=== PATIENT | male | born 1995 | race Caucasian/White ===

== ENCOUNTER 2020-03-27 08:04 | Emergency (ER) | payer OTHER ==
[2020-03-27] MEDS ORDERED: Sodium Chloride 0.9% 10 ML Syringe FLUSH PRN (08:57)
[2020-03-27] MEDS ORDERED: HYDROmorphone 1 MG/ML Syringe IVPUSH ONE (08:57)
[2020-03-27] MEDS ORDERED: Ondansetron 4 MG/2 ML SDV IVPUSH ONE (08:57)
[2020-03-27] MEDS ORDERED: Sodium Chloride 0.9% 1,000 ML IV SCH ×2 (09:00→10:45)
--- NOTE | 2020-03-27 09:34 | EDM.PDOC ---
ED HPI GENERAL MEDICAL PROBLEM - General Chief Complaint: Abdominal Pain Stated Complaint: VOMITING Time Seen by Provider: 03/27/20 08:34 Source of Information: Reports: Patient, Family, RN Notes Reviewed - History of Present Illness INITIAL COMMENTS - FREE TEXT/NARRATIVE: [age] yr old male has been having abd pain off and on for about 2 months, last 2 wks has been bad, at times OK, worse again the last few days. Not able to eat or drink much yesterday or today. Eating and drinking does make the pain, nausea and vomiting worse. No prior surgeries. No fever or chills. No diarrhea, melena, or hematochezia. Epigastric Pain Score (Numeric/FACES): 10 - Related Data Allergies Allergy/AdvReac Type Severity Reaction Status Date / Time No Known Allergies Allergy Verified 03/27/20 08:41 Home Meds: Home Meds Ondansetron [Zofran ODT] 4 mg SL Q4H PRN 03/27/20 [History] Past Medical History Gastrointestinal History: Reports: Other (See Below) Other Gastrointestinal History: similar symptoms 5 yrs ago as current complaint. Social & Family History - Tobacco Use Smoking Status *Q: Former Smoker Used Tobacco, but Quit: Yes Month/Year Tobacco Last Used: Oct 2019 - Caffeine Use Caffeine Use: Reports: Soda - Recreational Drug Use Recreational Drug Use: Yes Recreational Drug Type: Reports: Marijuana/Hashish ED ROS GENERAL - Review of Systems Review Of Systems: See Below Constitutional: Denies: Fever, Chills HEENT: Reports: No Symptoms Respiratory: Denies: Shortness of Breath Cardiovascular: Denies: Chest Pain GI/Abdominal: Reports: Abdominal Pain, Nausea, Vomiting. Denies: Diarrhea, Hematochezia, Melena Musculoskeletal: Denies: Back Pain Skin: Denies: Rash Neurological: Reports: Dizziness ED EXAM, GI/ABD - Physical Exam Exam: See Below General Appearance: Alert, Moderate Distress Throat/Mouth: Normal Inspection Head: Atraumatic. No: Facial Swelling Neck: Supple, Full Range of Motion Respiratory/Chest: No Respiratory Distress, Lungs Clear, Normal Breath Sounds Cardiovascular: Regular Rate, Rhythm GI/Abdominal Exam: Soft, Tender (mild upper and mid abd tenderness, lower abd nontender). No: Guarding Back Exam: No: CVA Tenderness (L), CVA Tenderness (R) Extremities: Normal Inspection, Normal Range of Motion Neurological: Alert, Oriented, No Motor/Sensory Deficits Skin Exam: Warm, Dry, Normal Color, No Rash Course - Vital Signs Last Recorded V/S: Last Vital Signs Temp 97.2 F 03/27/20 10:10 Pulse 74 03/27/20 10:10 Resp 16 03/27/20 10:10 BP 152/102 H 03/27/20 10:10 Pulse Ox 98 03/27/20 10:10 - Orders/Labs/Meds Orders: Active Orders 24 hr Category Date Time Status Peripheral IV Care [RC] . DIRECTED Care 03/27/20 08:58 Active Sodium Chloride 0.9% [Normal Saline] 1,000 ml Med 03/27/20 09:00 Active IV ONETIME Sodium Chloride 0.9% [Normal Saline] 1,000 ml Med 03/27/20 10:45 Active IV ONETIME Sodium Chloride 0.9% [Saline Flush] Med 03/27/20 08:57 Active 10 ml FLUSH ASDIRECTED PRN Peripheral IV Insertion Adult [OM.PC] Stat Oth 03/27/20 08:57 Ordered Medication Orders Sodium Chloride (Normal Saline) 1,000 mls @ 999 mls/hr IV ONETIME [facility] Last Admin: 03/27/20 09:13 Dose: 999 mls/hr Documented by: PHILIPP Sodium Chloride (Normal Saline) 1,000 mls @ 999 mls/hr IV ONETIME [facility] Last Admin: 03/27/20 11:35 Dose: 999 mls/hr Documented by: PHILIPP Sodium Chloride (Saline Flush) 10 ml FLUSH ASDIRECTED PRN PRN Reason: Keep Vein Open Last Admin: 03/27/20 09:06 Dose: 10 ml Documented by: PHILIPP Labs: Laboratory Tests 03/27/20 03/27/20 03/27/20 Range/Units 09:05 09:05 09:05 WBC 14.10 H (4.23-9.07) K/mm3 RBC 4.85 (4.63-6.08) M/mm3 Hgb 15.4 (13.7-17.5) gm/dl Hct 45.2 (40.1-51.0) % MCV 93.2 H (79.0-92.2) fl MCH 31.8 (25.7-32.2) pg MCHC 34.1 (32.2-35.5) g/dl RDW Std Deviation 39.8 (35.1-43.9) fL Plt Count 253 (163-337) K/mm3 MPV 10.6 (9.4-12.3) fl Neut % (Auto) 83.7 H (34.0-67.9) % Lymph % (Auto) 9.4 L (21.8-53.1) % [place] % (Auto) 6.1 (5.3-12.2) % Eos % (Auto) 0 L (0.8-7.0) Baso % (Auto) 0.4 (0.1-1.2) % Neut # (Auto) 11.82 H (1.78-5.38) K/mm3 Lymph # (Auto) 1.32 (1.32-3.57) K/mm3 [place] # (Auto) 0.86 H (0.30-0.82) K/mm3 Eos # (Auto) 0.00 L (0.04-0.54) K/mm3 Baso # (Auto) 0.05 (0.01-0.08) K/mm3 Manual Slide Review Abnormal smear Sodium 141 (136-145) mEq/L Potassium 3.5 (3.5-5.1) mEq/L Chloride 102 (98-107) mEq/L Carbon Dioxide 23 (21-32) mEq/L Anion Gap 19.5 H (5-15) BUN 11 (7-18) mg/dL Creatinine 1.2 (0.7-1.3) mg/dL Est Cr Clr Drug Dosing 100.23 mL/min Estimated GFR (MDRD) > 60 (>60) mL/min BUN/Creatinine Ratio 9.2 L (14-18) Glucose 156 H (74-106) mg/dL Calcium 9.8 (8.5-10.1) mg/dL Total Bilirubin 1.9 H (0.2-1.0) mg/dL AST 18 (15-37) U/L ALT 40 (16-63) U/L Alkaline Phosphatase 63 (46-116) U/L C-Reactive Protein 0.7 (<1.0) mg/dL Total Protein 8.1 (6.4-8.2) g/dl Albumin 4.6 (3.4-5.0) g/dl Globulin 3.5 gm/dL Albumin/Globulin Ratio 1.3 (1-2) Lipase 103 (73-393) U/L Meds: Medications Generic Name Dose Route Start Last Admin Trade Name Freq PRN Reason Stop Dose Admin Sodium Chloride 1,000 mls @ 999 mls/hr 03/27/20 09:00 03/27/20 09:13 Normal Saline IV 999 mls/hr ONETIME [facility] Administration Sodium Chloride 1,000 mls @ 999 mls/hr 03/27/20 10:45 03/27/20 11:35 Normal Saline IV 999 mls/hr ONETIME [facility] Administration Sodium Chloride 10 ml 03/27/20 08:57 03/27/20 09:06 Saline Flush FLUSH 10 ml ASDIRECTED PRN Administration Keep Vein Open Discontinued Medications Generic Name Dose Route Start Last Admin Trade Name Joshuaq PRN Reason Stop Dose Admin Hydromorphone HCl 1 mg 03/27/20 08:57 03/27/20 09:09 Dilaudid IVPUSH 03/27/20 08:58 1 mg ONETIME ONE Administration Hydromorphone HCl 0.5 mg 03/27/20 10:40 03/27/20 11:32 Dilaudid IVPUSH 03/27/20 10:41 0.5 mg ONETIME ONE Administration Metoclopramide HCl 5 mg 03/27/20 10:40 03/27/20 11:30 Reglan IVPUSH 03/27/20 10:41 5 mg ONETIME ONE Administration Ondansetron HCl 4 mg 03/27/20 08:57 03/27/20 09:11 Zofran IVPUSH 03/27/20 08:58 4 mg ONETIME ONE Administration - Re-Assessments/Exams Free Text/Narrative Re-Assessment/Exam: 03/27/20 11:19 Pt admits he does use marijauna pretty regularly. He did have US of abd when hospitalized in [place] about 2 wks ago. Labs are OK, bili slightly elevated at 1.1. Have given IV meds and fluid, will give meds and more fluid. Discharge instr. as documented. Departure - Departure Time of Disposition: 11:32 Disposition: Home, Self-Care 01 Condition: Fair Clinical Impression: Cyclic vomiting syndrome Abdominal pain Qualifiers: Abdominal location: upper abdomen, unspecified Qualified Code(s): R10.10 - Upper abdominal pain, unspecified Vomiting Qualifiers: Vomiting type: unspecified Vomiting Intractability: non-intractable Nausea presence: with nausea Qualified Code(s): R11.2 - Nausea with vomiting, unspecified - Discharge Information Instructions: Abdominal Pain, Adult, [id number], Nausea and Vomiting, Adult, Vomiting, Adult, Cyclic Vomiting Syndrome, Adult Referrals: PCP,Not In Area [Primary Care Provider] - Forms: ED Department Discharge Additional Instructions: clear liquids until later today, than careful bland diet as tolerated. Avoid further marijuana. Continue zofran if needed for further nausea or vomiting. See one of the medical providers at [facility] early next week for recheck. If still having severe difficulty they can help get you referred to a GI specialist, they can help refer you to one of their providers that does endoscopy at their clinic. Return to ED as needed. Sepsis Event Note (ED) - Evaluation Sepsis Screening Result: No Definite Risk - Focused Exam Vital Signs: Vital Signs Temp Pulse Resp BP Pulse Ox 03/27/20 10:10 97.2 F 74 16 152/102 H 98 03/27/20 08:25 95.1 F L 90 18 134/97 H 98 - My Orders Last 24 Hours: My Active Orders 03/27/20 08:57 Sodium Chloride 0.9% [Saline Flush] 10 ml FLUSH ASDIRECTED PRN Peripheral IV Insertion Adult [OM.PC] Stat 03/27/20 08:58 Peripheral IV Care [RC] . DIRECTED 03/27/20 09:00 Sodium Chloride 0.9% [Normal Saline] 1,000 ml IV ONETIME 03/27/20 10:45 Sodium Chloride 0.9% [Normal Saline] 1,000 ml IV ONETIME - Assessment/Plan Last 24 Hours: My Active Orders 03/27/20 08:57 Sodium Chloride 0.9% [Saline Flush] 10 ml FLUSH ASDIRECTED PRN Peripheral IV Insertion Adult [OM.PC] Stat 03/27/20 08:58 Peripheral IV Care [RC] . DIRECTED 03/27/20 09:00 Sodium Chloride 0.9% [Normal Saline] 1,000 ml IV ONETIME 03/27/20 10:45 Sodium Chloride 0.9% [Normal Saline] 1,000 ml IV ONETIME
[2020-03-27] MEDS ORDERED: Metoclopramide 10 MG/2 ML SDV IVPUSH ONE (10:40)
[2020-03-27] MEDS ORDERED: HYDROmorphone 0.5 MG/0.5 ML Syringe IVPUSH ONE (10:40)
== END 2020-03-27 12:55 | disposition home or self-care (01) ==
LOC: JD.ED 08:04
DX: R10.10 Upper abdominal pain, unspecified (principal); R11.15 Cyclical vomiting syndrome unrelated to migraine
CPT/HCPCS: 36415; 80053; 83690; 85025; 86140; 96361; 96374; 96375; 96376; 99284; J1170; J2405; J2765; J7030; 99283

== ENCOUNTER 2020-03-27 20:33 | Inpatient (IN) | payer SELFPAY ==
[2020-03-27] MEDS ORDERED: Ondansetron 4 MG/2 ML SDV IVPUSH ONE (21:09)
[2020-03-27] MEDS ORDERED: Sodium Chloride 0.9% 1,000 ML IV STA (21:09)
[2020-03-27] MEDS ORDERED: Sodium Chloride 0.9% 10 ML Syringe FLUSH PRN (21:09)
[2020-03-27] MEDS ORDERED: HYDROmorphone 1 MG/ML Syringe IVPUSH ONE ×2 (21:11→23:43)
--- NOTE | 2020-03-27 22:01 | EDM.PDOC ---
ED HPI GENERAL MEDICAL PROBLEM - General Chief Complaint: Gastrointestinal Problem Stated Complaint: VOMITING Time Seen by Provider: 03/27/20 20:42 Source of Information: Reports: Patient History Limitations: Reports: No Limitations - History of Present Illness INITIAL COMMENTS - FREE TEXT/NARRATIVE: The patient presents with abdominal pain, nausea and vomiting. He was seen here earlier today for the same. He had labs done and he was given meds for nausea and pain. He was found to have hyperemesis due to cannabis use. He last used last night. He had this happen before back in [place] and he needed to be admitted on the 10 of March. He went home today and it came back and he feels he is worse and that he needs to be admitted. He has no fever, cough, chest pain, shortness of breath or diarrhea. He does have some chills. He still has his gallbladder and appendix. Onset: Gradual Duration: Day(s): Location: Reports: Abdomen Quality: Reports: Sharp Severity: Moderate Improves with: Reports: None Worsens with: Reports: None Associated Symptoms: Reports: Fever/Chills, Nausea/Vomiting. Denies: Chest Pain, Cough, Headaches, Shortness of Breath Abdomen Pain Score (Numeric/FACES): 10 - Related Data Allergies Allergy/AdvReac Type Severity Reaction Status Date / Time No Known Allergies Allergy Verified 03/27/20 20:58 Home Meds: Home Meds Ondansetron [Zofran ODT] 4 mg SL Q4H PRN 03/27/20 [History] Past Medical History Gastrointestinal History: Reports: Other (See Below) Other Gastrointestinal History: similar symptoms 5 yrs ago as current complaint. Social & Family History - Family History Family Medical History: Noncontributory - Tobacco Use Smoking Status *Q: Former Smoker Used Tobacco, but Quit: Yes Month/Year Tobacco Last Used: 2019 - Caffeine Use Caffeine Use: Reports: Soda - Recreational Drug Use Recreational Drug Use: Yes Drug Use in Last 12 Months: Yes Recreational Drug Type: Reports: Marijuana/Hashish Recreational Drug Use Frequency: Daily Recreational Drug Last Use: t-1 ED ROS GENERAL - Review of Systems Review Of Systems: See Below Constitutional: Reports: Chills. Denies: Fever HEENT: Reports: No Symptoms Respiratory: Reports: No Symptoms Cardiovascular: Reports: No Symptoms Endocrine: Reports: No Symptoms GI/Abdominal: Reports: Abdominal Pain, Nausea, Vomiting. Denies: Diarrhea : Reports: No Symptoms Musculoskeletal: Reports: No Symptoms ED EXAM, GI/ABD - Physical Exam Exam: See Below Exam Limited By: No Limitations General Appearance: Alert, No Apparent Distress Ears: Normal External Exam Nose: Normal Inspection Head: Atraumatic, Normocephalic Neck: Normal Inspection Respiratory/Chest: No Respiratory Distress, Lungs Clear, Normal Breath Sounds Cardiovascular: Regular Rate, Rhythm, No Edema, No Murmur GI/Abdominal Exam: Soft, No Organomegaly, No Mass, Tender (Mild generalized tenderness) Course - Vital Signs Last Recorded V/S: Last Vital Signs Temp 97 F 03/27/20 20:48 Pulse 110 H 03/27/20 20:48 Resp 20 03/27/20 20:48 BP 159/102 H 03/27/20 20:48 Pulse Ox 99 03/27/20 20:48 - Orders/Labs/Meds Orders: Active Orders 24 hr Category Date Time Status Gastrointestinal Tube Mgmt [RC] ASDIRECTED Care 03/27/20 23:30 Active Peripheral IV Care [RC] . DIRECTED Care 03/27/20 21:09 Active Abdomen Pelvis w Cont [CT] Stat Exams 03/27/20 21:09 Taken HYDROmorphone [Dilaudid] Med 03/27/20 23:43 Once 1 mg IVPUSH ONETIME ONE Sodium Chloride 0.9% [Saline Flush] Med 03/27/20 21:09 Active 10 ml FLUSH ASDIRECTED PRN ED Antiemetic Medication Reflex [OM.PC] Stat Oth 03/27/20 21:09 Ordered NG [Nasogastric Orogastric Tube Insertion] [OM.PC] Oth 03/27/20 23:30 Ordered Routine Peripheral IV Insertion Adult [OM.PC] Stat Oth 03/27/20 21:09 Ordered Medication Orders Sodium Chloride (Saline Flush) 10 ml FLUSH ASDIRECTED PRN PRN Reason: Keep Vein Open Last Admin: 03/27/20 21:42 Dose: 10 ml Documented by: [email or web address] Labs: Laboratory Tests 03/27/20 03/27/20 03/27/20 Range/Units 21:30 21:30 21:30 WBC 13.47 H (4.23-9.07) K/mm3 RBC 4.71 (4.63-6.08) M/mm3 Hgb 14.9 (13.7-17.5) gm/dl Hct 43.8 (40.1-51.0) % MCV 93.0 H (79.0-92.2) fl MCH 31.6 (25.7-32.2) pg MCHC 34.0 (32.2-35.5) g/dl RDW Std Deviation 40.4 (35.1-43.9) fL Plt Count 253 (163-337) K/mm3 MPV 10.9 (9.4-12.3) fl Neut % (Auto) 80.2 H (34.0-67.9) % Lymph % (Auto) 10.7 L (21.8-53.1) % [place] % (Auto) 8.4 (5.3-12.2) % Eos % (Auto) 0 L (0.8-7.0) Baso % (Auto) 0.4 (0.1-1.2) % Neut # (Auto) 10.81 H (1.78-5.38) K/mm3 Lymph # (Auto) 1.44 (1.32-3.57) K/mm3 [place] # (Auto) 1.13 H (0.30-0.82) K/mm3 Eos # (Auto) 0.00 L (0.04-0.54) K/mm3 Baso # (Auto) 0.05 (0.01-0.08) K/mm3 Manual Slide Review Normal smear Sodium 146 H (136-145) mEq/L Potassium 3.4 L (3.5-5.1) mEq/L Chloride 105 (98-107) mEq/L Carbon Dioxide 24 (21-32) mEq/L Anion Gap 20.4 H (5-15) BUN 8 (7-18) mg/dL Creatinine 1.1 (0.7-1.3) mg/dL Est Cr Clr Drug Dosing 109.34 mL/min Estimated GFR (MDRD) > 60 (>60) mL/min BUN/Creatinine Ratio 7.3 L (14-18) Glucose 134 H (74-106) mg/dL Calcium 9.2 (8.5-10.1) mg/dL Magnesium 1.8 (1.8-2.4) mg/dl Total Bilirubin 1.5 H (0.2-1.0) mg/dL Direct Bilirubin 0.30 H (0.0-0.2) mg/dl AST 18 (15-37) U/L ALT 36 (16-63) U/L Alkaline Phosphatase 58 (46-116) U/L Total Protein 7.9 (6.4-8.2) g/dl Albumin 4.3 (3.4-5.0) g/dl Globulin 3.6 gm/dL Albumin/Globulin Ratio 1.2 (1-2) Lipase 108 (73-393) U/L Urine Color (Yellow) Urine Appearance (Clear) Urine pH (5.0-8.0) Ur Specific [place] (1.005-1.030) Urine Protein (Negative) Urine Glucose (UA) (Negative) Urine Ketones (Negative) Urine Occult Blood (Negative) Urine Nitrite (Negative) Urine Bilirubin (Negative) Urine Urobilinogen (0.2-1.0) Ur Leukocyte Esterase (Negative) Urine RBC (0-5) /hpf Urine WBC (0-5) /hpf Ur Squamous Epith Cells (0-5) /hpf Urine Bacteria (FEW) /hpf Urine Mucus (FEW) /hpf Urine Opiates Screen (YEKOEG=390) Ur Buprenorphine Scrn (CUTOFF=10) Ur Oxycodone Screen (QTS8DQ=672) Urine Methadone Screen (QZK3XS=455) Ur Propoxyphene Screen (IXXSJX=693) Ur Barbiturates Screen (YEXRNU=311) Ur Tricyclics Screen (AOSAPH=302) Ur Phencyclidine Scrn (CUTOFF=25) Ur Amphetamine Screen (HZIUGW=128) U Methamphetamines Scrn (MHWGCT=487) U Benzodiazepines Scrn (WDPGXN=274) U Cocaine Metab Screen (CYFOVG=041) U Marijuana (THC) Screen (CUTOFF=50) 03/27/20 03/27/20 Range/Units 23:13 23:13 WBC (4.23-9.07) K/mm3 RBC (4.63-6.08) M/mm3 Hgb (13.7-17.5) gm/dl Hct (40.1-51.0) % MCV (79.0-92.2) fl MCH (25.7-32.2) pg MCHC (32.2-35.5) g/dl RDW Std Deviation (35.1-43.9) fL Plt Count (163-337) K/mm3 MPV (9.4-12.3) fl Neut % (Auto) (34.0-67.9) % Lymph % (Auto) (21.8-53.1) % [place] % (Auto) (5.3-12.2) % Eos % (Auto) (0.8-7.0) Baso % (Auto) (0.1-1.2) % Neut # (Auto) (1.78-5.38) K/mm3 Lymph # (Auto) (1.32-3.57) K/mm3 [place] # (Auto) (0.30-0.82) K/mm3 Eos # (Auto) (0.04-0.54) K/mm3 Baso # (Auto) (0.01-0.08) K/mm3 Manual Slide Review Sodium (136-145) mEq/L Potassium (3.5-5.1) mEq/L Chloride (98-107) mEq/L Carbon Dioxide (21-32) mEq/L Anion Gap (5-15) BUN (7-18) mg/dL Creatinine (0.7-1.3) mg/dL Est Cr Clr Drug Dosing mL/min Estimated GFR (MDRD) (>60) mL/min BUN/Creatinine Ratio (14-18) Glucose (74-106) mg/dL Calcium (8.5-10.1) mg/dL Magnesium (1.8-2.4) mg/dl Total Bilirubin (0.2-1.0) mg/dL Direct Bilirubin (0.0-0.2) mg/dl AST (15-37) U/L ALT (16-63) U/L Alkaline Phosphatase (46-116) U/L Total Protein (6.4-8.2) g/dl Albumin (3.4-5.0) g/dl Globulin gm/dL Albumin/Globulin Ratio (1-2) Lipase (73-393) U/L Urine Color Yellow (Yellow) Urine Appearance Clear (Clear) Urine pH 6.0 (5.0-8.0) Ur Specific [place] 1.025 (1.005-1.030) Urine Protein Negative (Negative) Urine Glucose (UA) Negative (Negative) Urine Ketones 4+ H (Negative) Urine Occult Blood Trace-lysed H (Negative) Urine Nitrite Negative (Negative) Urine Bilirubin Negative (Negative) Urine Urobilinogen 0.2 (0.2-1.0) Ur Leukocyte Esterase Negative (Negative) Urine RBC 0-5 (0-5) /hpf Urine WBC Not seen (0-5) /hpf Ur Squamous Epith Cells 0-5 (0-5) /hpf Urine Bacteria Not seen (FEW) /hpf Urine Mucus Not seen (FEW) /hpf Urine Opiates Screen Negative (WTKTEB=522) Ur Buprenorphine Scrn Negative (CUTOFF=10) Ur Oxycodone Screen Negative (HAJ4OL=509) Urine Methadone Screen Negative (DPR2DZ=324) Ur Propoxyphene Screen Negative (PWMSZX=900) Ur Barbiturates Screen Negative (HIRBEN=512) Ur Tricyclics Screen Negative (QBUPUN=195) Ur Phencyclidine Scrn Negative (CUTOFF=25) Ur Amphetamine Screen Negative (NKAPBK=127) U Methamphetamines Scrn Negative (HXJAGD=626) U Benzodiazepines Scrn Negative (GKQKYN=101) U Cocaine Metab Screen Negative (JJJISC=788) U Marijuana (THC) Screen Presumptive positive H (CUTOFF=50) Meds: Medications Generic Name Dose Route Start Last Admin Trade Name Freq PRN Reason Stop Dose Admin Sodium Chloride 10 ml 03/27/20 21:09 03/27/20 21:42 Saline Flush FLUSH 10 ml ASDIRECTED PRN Administration Keep Vein Open Discontinued Medications Generic Name Dose Route Start Last Admin Trade Name Freq PRN Reason Stop Dose Admin Diatrizoate Meglum/Diatrizoate Sod 90 ml 03/27/20 22:53 03/27/20 22:54 Gastrografin 37% PO 03/27/20 22:54 90 ml ONETIME ONE Administration Hydromorphone HCl 1 mg 03/27/20 21:11 03/27/20 21:31 Dilaudid IVPUSH 03/27/20 21:12 1 mg ONETIME ONE Administration Sodium Chloride 1,000 mls @ 1,000 mls/hr 03/27/20 21:09 03/27/20 21:31 Normal Saline IV 03/27/20 22:08 1,000 mls/hr .BOLUS STA Administration Iopamidol 100 ml 03/27/20 22:53 03/27/20 22:54 Isovue-300 (61%) IVPUSH 03/27/20 22:54 100 ml ONETIME ONE Administration Lidocaine HCl Confirm 03/27/20 23:36 Xylocaine 2% Jelly Administered 03/27/20 23:37 Dose 10 ml .ROUTE .STK-MED ONE Ondansetron HCl 4 mg 03/27/20 21:09 03/27/20 21:31 Zofran IVPUSH 03/27/20 21:10 4 mg ONETIME ONE Administration Pantoprazole Sodium 80 mg 03/27/20 23:30 03/27/20 23:42 Protonix Iv IVPUSH 03/27/20 23:31 80 mg BOLUS ONE Administration - Re-Assessments/Exams Free Text/Narrative Re-Assessment/Exam: 03/27/20 22:01 I ordered an IV NS 1L bolus, zofran 4mg IV, dilaudid 1mg IV, labs, UA and a CT of his abdomen and pelvis. 03/27/20 22:27 His WBC is elevated at 13.47 but improved from earlier. His Na is 146 and his potassium is low at 3.4. His anion gap is elevated at 20.4. His glucose is 134. His total bili is 1.5. His lipase is normal. I am waiting for the CT. 03/27/20 23:44 His UA shows no UTI. His UDS was positive for marijuana. His CT shows wall thickening involving the pyloric canal 1st/2nd portions of the duodenum. This could be due to incomplete distention, peristalsis/contraction. Changes secondary to gastritis/duodenitis are not excluded. Moderately dilated stomach, that may represent changes of ileus or partial outlet obstruction. I called Dr Renae our general surgeon automobile [employer] bonder and he wanted an NG in and a PP I and he will see him in the morning. He requested the hospitalist admit and he be on consult. He may do a EGD tomorrow. I called Dr Philip and he agreed to the admission. I ordered protonix 80mg IV and the NG. Departure - Departure Time of Disposition: 23:50 Disposition: Admitted As Inpatient 66 Condition: Fair Clinical Impression: Gastric outlet obstruction, Duodenitis Gastritis Qualifiers: Gastritis type: unspecified gastritis Chronicity: acute Gastritis bleeding: without bleeding Qualified Code(s): K29.00 - Acute gastritis without bleeding - Discharge Information Referrals: Amarilys Grider MD [Primary Care Provider] - Forms: ED Department Discharge Sepsis Event Note (ED) - Evaluation Sepsis Screening Result: No Definite Risk - Focused Exam Vital Signs: Vital Signs Temp Pulse Resp BP Pulse Ox 03/27/20 20:48 97 F 110 H 20 159/102 H 99 - My Orders Last 24 Hours: My Active Orders 03/27/20 21:09 Peripheral IV Care [RC] . DIRECTED Abdomen Pelvis w Cont [CT] Stat Sodium Chloride 0.9% [Saline Flush] 10 ml FLUSH ASDIRECTED PRN ED Antiemetic Medication Reflex [OM.PC] Stat Peripheral IV Insertion Adult [OM.PC] Stat 03/27/20 23:30 Gastrointestinal Tube Mgmt [RC] ASDIRECTED NG [Nasogastric Orogastric Tube Insertion] [OM.PC] Routine 03/27/20 23:43 HYDROmorphone [Dilaudid] 1 mg IVPUSH ONETIME ONE - Assessment/Plan Last 24 Hours: My Active Orders 03/27/20 21:09 Peripheral IV Care [RC] . DIRECTED Abdomen Pelvis w Cont [CT] Stat Sodium Chloride 0.9% [Saline Flush] 10 ml FLUSH ASDIRECTED PRN ED Antiemetic Medication Reflex [OM.PC] Stat Peripheral IV Insertion Adult [OM.PC] Stat 03/27/20 23:30 Gastrointestinal Tube Mgmt [RC] ASDIRECTED NG [Nasogastric Orogastric Tube Insertion] [OM.PC] Routine 03/27/20 23:43 HYDROmorphone [Dilaudid] 1 mg IVPUSH ONETIME ONE
[2020-03-27] MEDS ORDERED: Iopamidol 612 MG/ML 100 ML Bottle IVPUSH ONE (22:53)
[2020-03-27] MEDS ORDERED: Diatrizoate Meglumine/Diatrizoate Sodium 37% 120 ML Bottle PO ONE (22:53)
[2020-03-27] MEDS ORDERED: Pantoprazole 40 MG Vial IVPUSH ONE (23:30)
[2020-03-27] MEDS ORDERED: Lidocaine 2% Jelly 10 ML Urojet ONE (23:36)
--- NOTE | 2020-03-28 00:46 | PCM.HP.2 ---
H&P History of Present Illness - General Date of Service: 03/28/20 - History of Present Illness Initial Comments - Free Text/Narative: 25-year-old male with complaints of abdominal pain, nausea, and vomiting for last 2 to 2-1/2 months. Patient states that initially he was just nauseous in the mornings and after smoking marijuana he would improve. Symptoms progressed and on March 10, 2020 he was hospitalized for 3 nights in [facility] for colitis. Patient states he had a CT scan done but did not get an endoscopy performed. Patient was seen here February 25 with continued nausea and vomiting. Patient was believed to have hyperemesis due to cannabis use. Symptoms continued throughout the day and returned last night to the emergency department. He states his emesis has been growing darker and his abdominal pain has been constant and severe. He denies any hematemesis, hemoptysis, melena, or hematochezia. No family history of inflammatory bowel disease. Grandfather with colon cancer. Last night in the emergency department he had a CT scan of the abdomen and pelvis that was read by Sanjay galvez that showed: 1. Wall thickening involving the pyloric canal and first/second portions of the duodenum. This could be due to incomplete distention, peristalsis/contraction. Changes secondary to gastritis/duodenitis are not excluded. 2. Mildly dilated stomach, that may represent changes of ileus or partial outlet obstruction. Laboratory results on the night of March 27: WBC 13.47, hemoglobin 14.9, platelets 253. Chemistry: Sodium 146, potassium 3.4, chloride 105, bicarb 24, anion gap 20.4, BUN 8, creatinine 1.1, glucose 134, magnesium 1.8, calcium 9.2, total bilirubin 1.5, direct bilirubin 0.30 with normal AST 18 and normal ALT 36. Lipase 108. Albumin 4.3. Alkaline phosphatase 58. UA showed ketones 4+. Urine drug screen was presumptive positive for marijuana which he already admitted to. Patient was given Zofran, Protonix 80 mg IV push, 1 L normal saline bolus and an NG tube was placed. Dr. Renae in surgery was consulted and requests the hospitalist service to admit with possibility of EGD in the morning. He stopped smoking tobacco and drinking 4 months ago. He smokes marijuana daily. Abdomen Pain Score (Numeric/FACES): 10 - Related Data Allergies/Adverse Reactions: Allergies Allergy/AdvReac Type Severity Reaction Status Date / Time No Known Allergies Allergy Verified 03/28/20 01:26 Home Medications: Home Meds Ondansetron [Zofran ODT] 4 mg SL Q4H PRN 03/27/20 [History] Past Medical History Gastrointestinal History: Reports: Other (See Below) Other Gastrointestinal History: similar symptoms 5 yrs ago as current complaint. Social & Family History - Family History Family Medical History: Noncontributory - Tobacco Use Smoking Status *Q: Former Smoker Used Tobacco, but Quit: Yes Month/Year Tobacco Last Used: 2019 - Caffeine Use Caffeine Use: Reports: Soda - Recreational Drug Use Recreational Drug Use: Yes Drug Use in Last 12 Months: Yes Recreational Drug Type: Reports: Marijuana/Hashish Recreational Drug Use Frequency: Daily Recreational Drug Last Use: t-1 H&P Review of Systems - Review of Systems: Review Of Systems: Comprehensive ROS is negative, except as noted in HPI. Exam - Exam Exam: See Below - Vital Signs Vital Signs: Last Vital Signs Temp 97 F 03/27/20 20:48 Pulse 110 H 03/27/20 20:48 Resp 20 03/27/20 20:48 BP 159/102 H 03/27/20 20:48 Pulse Ox 99 03/27/20 20:48 Weight: 99.79 kg - Exam Quality Assessment: Other (NG tube) General: Alert, Oriented, 4 HEENT: Conjunctiva Clear, EOMI, Hearing Intact, Mucosa Moist & Prichard, Nares Patent, PERRLA Neck: Supple, Trachea Midline, 2 Lungs: Clear to Auscultation, Normal Respiratory Effort Cardiovascular: Regular Rate, Regular Rhythm GI/Abdominal Exam: Normal Bowel Sounds, Soft, No Organomegaly, No Distention, No Abnormal Bruit, No Mass, Tender (Minimal tenderness diffusely), Abnormal Bowel Sounds (Mildly decreased). No: Guarding, Rigid, Rebound Extremities: Normal Inspection, Normal Range of Motion, Non-Tender, No Pedal Edema, Normal Capillary Refill Peripheral Pulses: 2+: Posterior Tibial (L), Posterior Tibial (R), Dorsalis Pedis (L), Dorsalis Pedis (R) Skin: Warm, Dry, Intact Neurological: Cranial Nerves Intact Neuro Extensive - Mental Status: Alert, Oriented x3, Normal Mood/Affect, Normal Cognition Neuro Extensive - Motor, Sensory, Reflexes: CN II-XII Intact Psychiatric: Alert, Normal Affect, Normal Mood - Patient Data Lab Results Last 24 hrs: Laboratory Results - last 24 hr 03/27/20 03/27/20 03/27/20 Range/Units 21:30 21:30 21:30 WBC 13.47 H (4.23-9.07) K/mm3 RBC 4.71 (4.63-6.08) M/mm3 Hgb 14.9 (13.7-17.5) gm/dl Hct 43.8 (40.1-51.0) % MCV 93.0 H (79.0-92.2) fl MCH 31.6 (25.7-32.2) pg MCHC 34.0 (32.2-35.5) g/dl RDW Std Deviation 40.4 (35.1-43.9) fL Plt Count 253 (163-337) K/mm3 MPV 10.9 (9.4-12.3) fl Neut % (Auto) 80.2 H (34.0-67.9) % Lymph % (Auto) 10.7 L (21.8-53.1) % Pitkin % (Auto) 8.4 (5.3-12.2) % Eos % (Auto) 0 L (0.8-7.0) Baso % (Auto) 0.4 (0.1-1.2) % Neut # (Auto) 10.81 H (1.78-5.38) K/mm3 Lymph # (Auto) 1.44 (1.32-3.57) K/mm3 Pitkin # (Auto) 1.13 H (0.30-0.82) K/mm3 Eos # (Auto) 0.00 L (0.04-0.54) K/mm3 Baso # (Auto) 0.05 (0.01-0.08) K/mm3 Manual Slide Review Normal smear Sodium 146 H (136-145) mEq/L Potassium 3.4 L (3.5-5.1) mEq/L Chloride 105 (98-107) mEq/L Carbon Dioxide 24 (21-32) mEq/L Anion Gap 20.4 H (5-15) BUN 8 (7-18) mg/dL Creatinine 1.1 (0.7-1.3) mg/dL Est Cr Clr Drug Dosing 109.34 mL/min Estimated GFR (MDRD) > 60 (>60) mL/min BUN/Creatinine Ratio 7.3 L (14-18) Glucose 134 H (74-106) mg/dL Calcium 9.2 (8.5-10.1) mg/dL Magnesium 1.8 (1.8-2.4) mg/dl Total Bilirubin 1.5 H (0.2-1.0) mg/dL Direct Bilirubin 0.30 H (0.0-0.2) mg/dl AST 18 (15-37) U/L ALT 36 (16-63) U/L Alkaline Phosphatase 58 (46-116) U/L Total Protein 7.9 (6.4-8.2) g/dl Albumin 4.3 (3.4-5.0) g/dl Globulin 3.6 gm/dL Albumin/Globulin Ratio 1.2 (1-2) Lipase 108 (73-393) U/L Urine Color (Yellow) Urine Appearance (Clear) Urine pH (5.0-8.0) Ur Specific [place] (1.005-1.030) Urine Protein (Negative) Urine Glucose (UA) (Negative) Urine Ketones (Negative) Urine Occult Blood (Negative) Urine Nitrite (Negative) Urine Bilirubin (Negative) Urine Urobilinogen (0.2-1.0) Ur Leukocyte Esterase (Negative) Urine RBC (0-5) /hpf Urine WBC (0-5) /hpf Ur Squamous Epith Cells (0-5) /hpf Urine Bacteria (FEW) /hpf Urine Mucus (FEW) /hpf Urine Opiates Screen (COPYXE=025) Ur Buprenorphine Scrn (CUTOFF=10) Ur Oxycodone Screen (OXF2QV=732) Urine Methadone Screen (MBU9CY=112) Ur Propoxyphene Screen (GRJTIV=650) Ur Barbiturates Screen (EZIDLO=530) Ur Tricyclics Screen (DDBDSY=916) Ur Phencyclidine Scrn (CUTOFF=25) Ur Amphetamine Screen (YYLIFG=094) U Methamphetamines Scrn (HCTFWX=525) U Benzodiazepines Scrn (HSDQNW=979) U Cocaine Metab Screen (JPWIVY=029) U Marijuana (THC) Screen (CUTOFF=50) COVID-19 (KIKI) (NEGATIVE) 07/16/20 07/16/20 07/17/20 Range/Units 23:13 23:13 00:04 WBC (4.23-9.07) K/mm3 RBC (4.63-6.08) M/mm3 Hgb (13.7-17.5) gm/dl Hct (40.1-51.0) % MCV (79.0-92.2) fl MCH (25.7-32.2) pg MCHC (32.2-35.5) g/dl RDW Std Deviation (35.1-43.9) fL Plt Count (163-337) K/mm3 MPV (9.4-12.3) fl Neut % (Auto) (34.0-67.9) % Lymph % (Auto) (21.8-53.1) % Pitkin % (Auto) (5.3-12.2) % Eos % (Auto) (0.8-7.0) Baso % (Auto) (0.1-1.2) % Neut # (Auto) (1.78-5.38) K/mm3 Lymph # (Auto) (1.32-3.57) K/mm3 Pitkin # (Auto) (0.30-0.82) K/mm3 Eos # (Auto) (0.04-0.54) K/mm3 Baso # (Auto) (0.01-0.08) K/mm3 Manual Slide Review Sodium (136-145) mEq/L Potassium (3.5-5.1) mEq/L Chloride (98-107) mEq/L Carbon Dioxide (21-32) mEq/L Anion Gap (5-15) BUN (7-18) mg/dL Creatinine (0.7-1.3) mg/dL Est Cr Clr Drug Dosing mL/min Estimated GFR (MDRD) (>60) mL/min BUN/Creatinine Ratio (14-18) Glucose (74-106) mg/dL Calcium (8.5-10.1) mg/dL Magnesium (1.8-2.4) mg/dl Total Bilirubin (0.2-1.0) mg/dL Direct Bilirubin (0.0-0.2) mg/dl AST (15-37) U/L ALT (16-63) U/L Alkaline Phosphatase (46-116) U/L Total Protein (6.4-8.2) g/dl Albumin (3.4-5.0) g/dl Globulin gm/dL Albumin/Globulin Ratio (1-2) Lipase (73-393) U/L Urine Color Yellow (Yellow) Urine Appearance Clear (Clear) Urine pH 6.0 (5.0-8.0) Ur Specific [place] 1.025 (1.005-1.030) Urine Protein Negative (Negative) Urine Glucose (UA) Negative (Negative) Urine Ketones 4+ H (Negative) Urine Occult Blood Trace-lysed H (Negative) Urine Nitrite Negative (Negative) Urine Bilirubin Negative (Negative) Urine Urobilinogen 0.2 (0.2-1.0) Ur Leukocyte Esterase Negative (Negative) Urine RBC 0-5 (0-5) /hpf Urine WBC Not seen (0-5) /hpf Ur Squamous Epith Cells 0-5 (0-5) /hpf Urine Bacteria Not seen (FEW) /hpf Urine Mucus Not seen (FEW) /hpf Urine Opiates Screen Negative (HSSJOD=190) Ur Buprenorphine Scrn Negative (CUTOFF=10) Ur Oxycodone Screen Negative (GDL2AJ=438) Urine Methadone Screen Negative (QOJ9DU=746) Ur Propoxyphene Screen Negative (KEJCLD=019) Ur Barbiturates Screen Negative (UGFIXK=068) Ur Tricyclics Screen Negative (CNUJDS=224) Ur Phencyclidine Scrn Negative (CUTOFF=25) Ur Amphetamine Screen Negative (UIEPVY=211) U Methamphetamines Scrn Negative (SYVEMS=029) U Benzodiazepines Scrn Negative (QMIOEN=087) U Cocaine Metab Screen Negative (UAXGVN=467) U Marijuana (THC) Screen Presumptive positive H (CUTOFF=50) COVID-19 (KIKI) Negative (NEGATIVE) Result Diagrams: 03/27/20 21:30 03/27/20 21:30 Sepsis Event Note - Evaluation Sepsis Screening Result: No Definite Risk - Focused Exam Vital Signs: Vital Signs Temp Pulse Resp BP Pulse Ox 03/27/20 20:48 97 F 110 H 20 159/102 H 99 Date Exam was Performed: 03/28/20 Time Exam was Performed: 02:51 - Problem List (1) Duodenitis SNOMED Code(s): 35815202 ICD Code: K29.80 - DUODENITIS WITHOUT BLEEDING Status: Acute Current Visit: Yes (2) Gastric outlet obstruction SNOMED Code(s): 631214860 ICD Code: K31.1 - ADULT HYPERTROPHIC PYLORIC STENOSIS Status: Acute Current Visit: Yes (3) Gastritis SNOMED Code(s): 2028402 ICD Code: K29.70 - GASTRITIS, UNSPECIFIED, WITHOUT BLEEDING Status: Acute Current Visit: Yes Qualifiers: Gastritis type: unspecified gastritis Chronicity: acute Gastritis bleeding: without bleeding Qualified Code(s): K29.00 - Acute gastritis without bleeding (4) Vomiting SNOMED Code(s): 850391930 ICD Code: R11.10 - VOMITING, UNSPECIFIED Status: Acute Current Visit: No Qualifiers: Vomiting type: unspecified Vomiting Intractability: non-intractable Nausea presence: with nausea Qualified Code(s): R11.2 - Nausea with vomiting, unspecified Problem List Initiated/Reviewed/Updated: Yes Orders Last 24hrs: Active Orders 24 hr Category Date Time Status Gastrointestinal Tube Mgmt [RC] ASDIRECTED Care 03/27/20 23:30 Active Peripheral IV Care [RC] . DIRECTED Care 03/27/20 21:09 Active Abdomen Pelvis w Cont [CT] Stat Exams 03/27/20 21:09 Taken Sodium Chloride 0.9% [Saline Flush] Med 03/27/20 21:09 Active 10 ml FLUSH ASDIRECTED PRN ED Antiemetic Medication Reflex [OM.PC] Stat Oth 03/27/20 21:09 Ordered NG [Nasogastric Orogastric Tube Insertion] [OM.PC] Oth 03/27/20 23:30 Ordered Routine Peripheral IV Insertion Adult [OM.PC] Stat Oth 03/27/20 21:09 Ordered Medication Orders Sodium Chloride (Saline Flush) 10 ml FLUSH ASDIRECTED PRN PRN Reason: Keep Vein Open Last Admin: 03/27/20 21:42 Dose: 10 ml Documented by: HERMMIC Assessment/Plan Comment:: Assessment * Gastric outlet obstruction versus ileus with changes consistent with gastritis/duodenitis -patient has a 2-month history of nausea, vomiting, and abdominal pain that has gradually worsened. He was hospitalized for 3 nights at the end of February and did not have endoscopy done at that time. CT scan was consistent with colitis per patient. Concern for inflammatory bowel disease exists since he has been having this for 2 months. * Leukocytosis -WBC 13.47, 80% neutrophils without bandemia-likely vomiting and stress worsening leukocytosis, but also inflammatory process needs to be considered * Elevated anion gap -anion gap 20.4 -likely secondary to volume contraction due to chronic emesis * Hypernatremia and hypokalemia -sodium 146, potassium 3.4 -hypernatremia secondary to volume contraction and potassium loss secondary to emesis. * Chronic daily marijuana use possibly leading to worsening of symptoms secondary to hyperemesis of chronic cannabis use. Also possibly delaying diagnosis secondary to improvement in symptoms of nausea and vomiting due to the antiemetic effects of marijuana * Elevated blood pressure without diagnosis of hypertension -likely secondary to vomiting Plan * Admit to medical floor * NG tube to low intermittent suction * N.p.o. * Consult Dr. Renae for possible EGD. * Rehydration with IV fluids * Potassium replacement * Follow CBC, CMP, and magnesium. * Dilaudid for pain management * Follow blood pressure * CODE STATUS: Full code - Mortality Measure Prognosis:: Good
[2020-03-28] MEDS: D5 1/2 NS w/ 20 mEq/L KCl 1,000 ML IV SCH ×3 (02:14→18:57)
[2020-03-28] MEDS: Ondansetron 4 MG/2 ML SDV IV PRN ×2 (02:15→16:01)
[2020-03-28] MEDS: HYDROmorphone 0.5 MG/0.5 ML Syringe IVPUSH PRN ×2 (05:20→16:39)
--- NOTE | 2020-03-28 06:38 | CT ---
CT abdomen and pelvis Technique: Multiple axial sections were obtained from above the dome of the diaphragm inferiorly through the pubic symphysis. Intravenous contrast was utilized. Oral contrast was also utilized which mostly remains within the stomach. Comparison: No prior abdominal imaging is available. Findings: Visualized lung bases show nothing acute. Liver contains no focal parenchymal abnormality. Spleen appears within normal limits. Adrenal glands show no nodule. Gallbladder contains no calcified gallstones. Pancreas shows no discrete abnormality. Kidneys show symmetric contrast enhancement without hydronephrosis or mass. Aorta shows no aneurysm. No retroperitoneal adenopathy or mesenteric abnormalities are seen. No pelvic mass or adenopathy is seen. Appendix is seen which is normal in size. Delayed images shows contrast within both distal ureters as well as contrast being seen within the bladder. Bone window settings were reviewed which shows no acute osseous finding. Impression: 1. Preliminary report from [facility] states wall thickening within the pylorus and duodenum. In my opinion this relates to lack of good distention. The increased contrast within the stomach likely represents rapid drinking of the barium. 2. No additional abnormality is appreciated on CT study of the abdomen and pelvis. Diagnostic code #2 This report was dictated in MDT I agree with preliminary report from [facility], finalized on , 12:07 AM Central Daylight Time
--- NOTE | 2020-03-28 07:35 | PCM.SN.2 ---
<Jace Ramirez - Last Filed: 03/28/20 10:56> - Free Text/Narrative Note: In to see Aston. He was admitted overnight in the very senior treasury consultant hours and therefore this will serve as an update to the initial HPI. Patient is in bed but has been up ambulating. NG tube is in place with very minimal output of 50 mL overnight. He remains NPO. Patient reports his nausea has resolved since he received his NG tube and is feeling pretty good. Denies any appetite. Lung sounds remain clear in all 4 quadrants. Normal S1 and S2 noted on cardiac auscultation. Pulses equal in all extremities. No edema noted. Abdomen remains soft with mild epigastric pain on deep palpation. Otherwise patient denies any pain. Patient denies any bowel movements but states he has been urinating. Dr. Renae, general surgeon, was in to see the patient and plan is for an EGD today. Anesthesia has been in to evaluate the patient. Patient reports he underwent EGD approximately 5 years ago in [place] with nothing acute being noted. Denies any current concerns or complaints. Labs have returned with a elevated white count of 12.11. This is an improvement on initial labs in the ED of 13.47. Again this is likely stress reaction. Hemoglobin has decreased to 13.1 and this is likely secondary to IV fluids. Neutrophils remain mildly elevated at 8.31. INR is 1.12. aPTT is 30. Sodium has decreased to 143. Potassium remains low at 3.4. Patient will be given four 10 mill equivalent K riders. Anion gap is improved to 13.4. Creatinine 0.9 and GFR greater than 60. Glucose remains slightly elevated at 128. Bilirubin is improved to 1.1. Liver enzymes remain within normal limits. Magnesium is improved to 2.0. COVID-19 screen is negative and patient was tested as part of the admission protocol, not due to concerns of any active disease. Again, plan is for diagnostic EGD today. Discharge plan will hinge on what is found by Dr. Renae and his recommendations. <Agapito Cazares - Last Filed: 03/28/20 17:32> - Free Text/Narrative Note: Patient is currently under hyperemetic phase. He is receiving PPI and anti- emetic agents. He would benefit with capsaicin if he is having abdominal. Will continue to encourage taking hot showers for symptomatic control. He will remain NPO except for ice chips/sips of water until his emesis resolves. Reviewed endoscopic results: some minor narrowing/resistance at the pylorus, traversed with the endoscope. Normal appearing duodenum with second portion well visualized. No ulceration or mass noted. Small hiatal hernia with low grade mucosal irritation at the distal esophagus.
[2020-03-28] MEDS: Pantoprazole 40 MG Vial IV SCH ×2 (08:08→20:50)
[2020-03-28] MEDS: Potassium Chloride 10 MEQ in Premix Bag 1 BAG IV SCH ×4 (09:25→16:01)
--- NOTE | 2020-03-28 09:43 | PCM.PREANE ---
Preanesthetic Assessment - Procedure Proposed Procedure: EGD - Anesthesia/Transfusion/Family Hx Anesthesia History: Prior Anesthesia Without Reaction Family History of Anesthesia Reaction: No Transfusion History: No Prior Transfusion(s) - Review of Systems General: Fatigue Pulmonary: No Symptoms Cardiovascular: No Symptoms Gastrointestinal: Abdominal Pain, Nausea, Vomiting, Other (NG tub yo LIS) Neurological: No Symptoms Other: Reports: None - Physical Assessment NPO Status Date: 03/26/20 NPO Status Time: 00:00 Vital Signs: Last Vital Signs Temp 36.7 C 03/28/20 07:47 Pulse 82 03/28/20 07:47 Resp 20 03/28/20 07:47 BP 134/75 03/28/20 07:47 Pulse Ox 97 03/28/20 07:47 Height: 1.8 m Weight: 99.79 kg ASA Class: 2 Mental Status: Alert & Oriented x3 Airway Class: Mallampati = 2 Dentition: Reports: Broken Tooth/Teeth (bottom left back) Thyro-Mental Finger Breadths: 2 Mouth Opening Finger Breadths: 2 ROM/Head Extension: Full Lungs: Clear to Auscultation, Normal Respiratory Effort Cardiovascular: Regular Rate, Regular Rhythm - Lab Values: Laboratory Last Values WBC 12.11 K/mm3 (4.23-9.07) H 03/28/20 05:05 RBC 4.15 M/mm3 (4.63-6.08) L 03/28/20 05:05 Hgb 13.1 gm/dl (13.7-17.5) L D 03/28/20 05:05 Hct 39.5 % (40.1-51.0) L 03/28/20 05:05 MCV 95.2 fl (79.0-92.2) H 03/28/20 05:05 MCH 31.6 pg (25.7-32.2) 03/28/20 05:05 MCHC 33.2 g/dl (32.2-35.5) 03/28/20 05:05 RDW Std Deviation 40.7 fL (35.1-43.9) 03/28/20 05:05 Plt Count 230 K/mm3 (163-337) 03/28/20 05:05 MPV 11.0 fl (9.4-12.3) 03/28/20 05:05 Neut % (Auto) 68.6 % (34.0-67.9) H 03/28/20 05:05 Lymph % (Auto) 22.2 % (21.8-53.1) 03/28/20 05:05 [place] % (Auto) 8.5 % (5.3-12.2) 03/28/20 05:05 Eos % (Auto) 0.2 (0.8-7.0) L 03/28/20 05:05 Baso % (Auto) 0.3 % (0.1-1.2) 03/28/20 05:05 Neut # (Auto) 8.31 K/mm3 (1.78-5.38) H 03/28/20 05:05 Lymph # (Auto) 2.69 K/mm3 (1.32-3.57) 03/28/20 05:05 [place] # (Auto) 1.03 K/mm3 (0.30-0.82) H 03/28/20 05:05 Eos # (Auto) 0.02 K/mm3 (0.04-0.54) L 03/28/20 05:05 Baso # (Auto) 0.04 K/mm3 (0.01-0.08) 03/28/20 05:05 Manual Slide Review Normal smear 03/27/20 21:30 PT 12.1 SECONDS (9.7-12.0) H 03/28/20 05:05 INR 1.12 03/28/20 05:05 APTT 30 SECONDS (22-31) 03/28/20 05:05 Sodium 143 mEq/L (136-145) 03/28/20 05:05 Potassium 3.4 mEq/L (3.5-5.1) L 03/28/20 05:05 Chloride 106 mEq/L (98-107) 03/28/20 05:05 Carbon Dioxide 27 mEq/L (21-32) 03/28/20 05:05 Anion Gap 13.4 (5-15) 03/28/20 05:05 BUN 6 mg/dL (7-18) L 03/28/20 05:05 Creatinine 0.9 mg/dL (0.7-1.3) 03/28/20 05:05 Est Cr Clr Drug Dosing 133.63 mL/min 03/28/20 05:05 Estimated GFR (MDRD) > 60 mL/min (>60) 03/28/20 05:05 BUN/Creatinine Ratio 6.7 (14-18) L 03/28/20 05:05 Glucose 128 mg/dL (74-106) H 03/28/20 05:05 Calcium 8.5 mg/dL (8.5-10.1) 03/28/20 05:05 Magnesium 2.0 mg/dl (1.8-2.4) 03/28/20 05:05 Total Bilirubin 1.1 mg/dL (0.2-1.0) H 03/28/20 05:05 Direct Bilirubin 0.30 mg/dl (0.0-0.2) H 03/27/20 21:30 AST 16 U/L (15-37) 03/28/20 05:05 ALT 32 U/L (16-63) 03/28/20 05:05 Alkaline Phosphatase 50 U/L (46-116) 03/28/20 05:05 Total Protein 6.7 g/dl (6.4-8.2) 03/28/20 05:05 Albumin 3.6 g/dl (3.4-5.0) 03/28/20 05:05 Globulin 3.1 gm/dL 03/28/20 05:05 Albumin/Globulin Ratio 1.2 (1-2) 03/28/20 05:05 Lipase 108 U/L (73-393) 03/27/20 21:30 Urine Color Yellow (Yellow) 03/27/20 23:13 Urine Appearance Clear (Clear) 03/27/20 23:13 Urine pH 6.0 (5.0-8.0) 03/27/20 23:13 Ur Specific [place] 1.025 (1.005-1.030) 03/27/20 23:13 Urine Protein Negative (Negative) 03/27/20 23:13 Urine Glucose (UA) Negative (Negative) 03/27/20 23:13 Urine Ketones 4+ (Negative) H 03/27/20 23:13 Urine Occult Blood Trace-lysed (Negative) H 03/27/20 23:13 Urine Nitrite Negative (Negative) 03/27/20 23:13 Urine Bilirubin Negative (Negative) 03/27/20 23:13 Urine Urobilinogen 0.2 (0.2-1.0) 03/27/20 23:13 Ur Leukocyte Esterase Negative (Negative) 03/27/20 23:13 Urine RBC 0-5 /hpf (0-5) 03/27/20 23:13 Urine WBC Not seen /hpf (0-5) 03/27/20 23:13 Ur Squamous Epith Cells 0-5 /hpf (0-5) 03/27/20 23:13 Urine Bacteria Not seen /hpf (FEW) 03/27/20 23:13 Urine Mucus Not seen /hpf (FEW) 03/27/20 23:13 Urine Opiates Screen Negative (MEYBWP=658) 03/27/20 23:13 Ur Buprenorphine Scrn Negative (CUTOFF=10) 03/27/20 23:13 Ur Oxycodone Screen Negative (SOO3LC=282) 03/27/20 23:13 Urine Methadone Screen Negative (NDX0IE=257) 03/27/20 23:13 Ur Propoxyphene Screen Negative (KEMLXY=210) 03/27/20 23:13 Ur Barbiturates Screen Negative (RCOYDV=919) 03/27/20 23:13 Ur Tricyclics Screen Negative (HFILIQ=191) 03/27/20 23:13 Ur Phencyclidine Scrn Negative (CUTOFF=25) 03/27/20 23:13 Ur Amphetamine Screen Negative (PNLZXH=021) 03/27/20 23:13 U Methamphetamines Scrn Negative (JGBCLE=227) 03/27/20 23:13 U Benzodiazepines Scrn Negative (AWYPOW=399) 03/27/20 23:13 U Cocaine Metab Screen Negative (OUHBVE=801) 03/27/20 23:13 U Marijuana (THC) Screen Presumptive positive (CUTOFF=50) H 03/27/20 23:13 COVID-19 (KIKI) Negative (NEGATIVE) 03/28/20 00:04 - Allergies Allergies/Adverse Reactions: Allergies Allergy/AdvReac Type Severity Reaction Status Date / Time No Known Allergies Allergy Verified 03/28/20 01:26 - Blood Blood Available: No Product(s) Available: None - Anesthesia Plan Pre-Op Medication Ordered: None - Acknowledgements Anesthesia Type Planned: MAC Pt an Appropriate Candidate for the Planned Anesthesia: Yes Alternatives and Risks of Anesthesia Discussed w Pt/Guardian: Yes Pt/Guardian Understands and Agrees with Anesthesia Plan: Yes PreAnesthesia Questionnaire HEENT History: Reports: Other (See Below) Other HEENT History: all wisdom teeth removed Gastrointestinal History: Reports: GERD, Other (See Below) Other Gastrointestinal History: similar symptoms 5 yrs ago as current complaint. Psychiatric History: Reports: ADHD - Infectious Disease History Infectious Disease History: Reports: Chicken Pox - Past Surgical History GI Surgical History: Reports: None - SUBSTANCE USE Smoking Status *Q: Former Smoker Tobacco Use Within Last Twelve Months: Cigarettes Second Hand Smoke Exposure: No Days Per Week of Alcohol Use: 0 Number of Drinks Per Day: 0 Total Drinks Per Week: 0 Recreational Drug Use History: Yes Recreational Drug Type: Reports: Marijuana/Hashish Recreational Drug Last Use: t-1 - HOME MEDS Home Medications: Home Meds Ondansetron [Zofran ODT] 4 mg SL Q4H PRN 03/27/20 [History] - CURRENT (IN HOUSE) MEDS Current Meds: Current Medications Hydromorphone HCl (Dilaudid) 0.5 mg IVPUSH Q2H PRN PRN Reason: Pain (severe 7-10) Last Admin: 03/28/20 05:20 Dose: 0.5 mg Documented by: Potassium Chloride/Dextrose/Sod Cl (D5 1/2 Ns W/ 20 Meq/L Kcl) 1,000 mls @ 125 mls/hr IV ASDIRECTED MEDINA Last Admin: 03/28/20 02:14 Dose: 125 mls/hr Documented by: Potassium Chloride 10 meq/ (Premix) 100 mls @ 100 mls/hr IV Q1H MEDINA Stop: 03/28/20 12:59 Last Admin: 03/28/20 09:25 Dose: 100 mls/hr Documented by: Ondansetron HCl (Zofran) 4 mg IV Q4H PRN PRN Reason: Nausea/Vomiting Last Admin: 03/28/20 02:15 Dose: 4 mg Documented by: Pantoprazole Sodium (Protonix Iv) 40 mg IV Q12HR MEDINA Last Admin: 03/28/20 08:08 Dose: 40 mg Documented by: Sodium Chloride (Saline Flush) 10 ml FLUSH ASDIRECTED PRN PRN Reason: Keep Vein Open Last Admin: 03/27/20 21:42 Dose: 10 ml Documented by: Discontinued Medications Diatrizoate Meglum/Diatrizoate Sod (Gastrografin 37%) 90 ml PO ONETIME ONE Stop: 03/27/20 22:54 Last Admin: 03/27/20 22:54 Dose: 90 ml Documented by: Hydromorphone HCl (Dilaudid) 1 mg IVPUSH ONETIME ONE Stop: 03/27/20 21:12 Last Admin: 03/27/20 21:31 Dose: 1 mg Documented by: Hydromorphone HCl (Dilaudid) 1 mg IVPUSH ONETIME ONE Stop: 03/27/20 23:44 Last Admin: 03/27/20 23:50 Dose: 1 mg Documented by: Sodium Chloride (Normal Saline) 1,000 mls @ 1,000 mls/hr IV .BOLUS STA Stop: 03/27/20 22:08 Last Admin: 03/27/20 21:31 Dose: 1,000 mls/hr Documented by: Iopamidol (Isovue-300 (61%)) 100 ml IVPUSH ONETIME ONE Stop: 03/27/20 22:54 Last Admin: 03/27/20 22:54 Dose: 100 ml Documented by: Lidocaine HCl (Xylocaine 2% Jelly) Confirm Administered Dose 10 ml .ROUTE .STK- MED ONE Stop: 03/27/20 23:37 Last Admin: 03/28/20 05:15 Dose: Not Given Documented by: Ondansetron HCl (Zofran) 4 mg IVPUSH ONETIME ONE Stop: 03/27/20 21:10 Last Admin: 03/27/20 21:31 Dose: 4 mg Documented by: Pantoprazole Sodium (Protonix Iv) 80 mg IVPUSH BOLUS ONE Stop: 03/27/20 23:31 Last Admin: 03/27/20 23:42 Dose: 80 mg Documented by:
--- NOTE | 2020-03-28 11:12 | PCM.CONS ---
H&P History of Present Illness - General Date of Service: 03/28/20 Admit Problem/Dx: Admission Diagnosis/Problem Admission Diagnosis/Problem Ileus Source of Information: Patient History Limitations: Reports: No Limitations - History of Present Illness Other HPI/Comments: Aston is a 25 yo man who was admitted from the emergency department last night with chronic abdominal pain and vomiting. These symptoms have been going on for over two months. The pain is at the epigastrium. He has trouble keeping down even water, and eating and drinking makes the pain worse. He has had about 10 lbs weight loss in the past two months. He has not been taking NSAID medication for his symptoms. He has tried over the counter antacid medication which does not help with his symptoms. Prior to two months ago, the patient was feeling fine. He had a similar episode of pain and vomiting about 5 years ago, but he reports this was self-limited. He reports that smoking marijuana helps with his symptoms. He has never had endoscopy. Apparently, he moved here from [place] a few weeks ago, and had been seen for these symptoms there where he was told he had some sort of colitis. He denies personal or family history of inflammatory bowel disease. Abdomen Pain Score (Numeric/FACES): 10 - Related Data Allergies/Adverse Reactions: Allergies Allergy/AdvReac Type Severity Reaction Status Date / Time No Known Allergies Allergy Verified 03/28/20 01:26 Home Medications: Home Meds Ondansetron [Zofran ODT] 4 mg SL Q4H PRN 03/27/20 [History] Past Medical History HEENT History: Reports: Other (See Below) Other HEENT History: all wisdom teeth removed Gastrointestinal History: Reports: GERD, Other (See Below) Other Gastrointestinal History: similar symptoms 5 yrs ago as current complaint. Psychiatric History: Reports: ADHD - Infectious Disease History Infectious Disease History: Reports: Chicken Pox - Past Surgical History GI Surgical History: Reports: None Social & Family History - Family History Family Medical History: Noncontributory - Tobacco Use Smoking Status *Q: Former Smoker Used Tobacco, but Quit: Yes Month/Year Tobacco Last Used: 2019 Second Hand Smoke Exposure: No - Caffeine Use Caffeine Use: Reports: Soda - Alcohol Use Days Per Week of Alcohol Use: 0 Number of Drinks Per Day: 0 Total Drinks Per Week: 0 - Recreational Drug Use Recreational Drug Use: Yes Drug Use in Last 12 Months: Yes Recreational Drug Type: Reports: Marijuana/Hashish Recreational Drug Use Frequency: Daily Recreational Drug Last Use: t-1 H&P Review of Systems - Review of Systems: Review Of Systems: See Below General: Reports: Weight Loss HEENT: Reports: No Symptoms Pulmonary: Reports: No Symptoms Cardiovascular: Reports: No Symptoms Gastrointestinal: Reports: Abdominal Pain, Anorexia, Nausea, Vomiting Genitourinary: Reports: No Symptoms Musculoskeletal: Reports: No Symptoms Skin: Reports: No Symptoms Psychiatric: Reports: No Symptoms Neurological: Reports: No Symptoms Exam - Exam Exam: See Below - Vital Signs Vital Signs: Last Vital Signs Temp 36.7 C 03/28/20 07:47 Pulse 82 03/28/20 07:47 Resp 20 03/28/20 07:47 BP 134/75 03/28/20 07:47 Pulse Ox 97 03/28/20 07:47 Weight: 99.79 kg - Exam General: Alert, Oriented, Cooperative HEENT: Conjunctiva Clear Neck: Trachea Midline Lungs: Normal Respiratory Effort Cardiovascular: Regular Rate GI/Abdominal Exam: Soft, Tender Skin: Warm, Dry Neuro Extensive - Mental Status: Alert, Oriented x3, Normal Mood/Affect - Patient Data Lab Results Last 24 hrs: Laboratory Results - last 24 hr 03/27/20 03/27/20 03/27/20 Range/Units 21:30 21:30 21:30 WBC 13.47 H (4.23-9.07) K/mm3 RBC 4.71 (4.63-6.08) M/mm3 Hgb 14.9 (13.7-17.5) gm/dl Hct 43.8 (40.1-51.0) % MCV 93.0 H (79.0-92.2) fl MCH 31.6 (25.7-32.2) pg MCHC 34.0 (32.2-35.5) g/dl RDW Std Deviation 40.4 (35.1-43.9) fL Plt Count 253 (163-337) K/mm3 MPV 10.9 (9.4-12.3) fl Neut % (Auto) 80.2 H (34.0-67.9) % Lymph % (Auto) 10.7 L (21.8-53.1) % [place] % (Auto) 8.4 (5.3-12.2) % Eos % (Auto) 0 L (0.8-7.0) Baso % (Auto) 0.4 (0.1-1.2) % Neut # (Auto) 10.81 H (1.78-5.38) K/mm3 Lymph # (Auto) 1.44 (1.32-3.57) K/mm3 [place] # (Auto) 1.13 H (0.30-0.82) K/mm3 Eos # (Auto) 0.00 L (0.04-0.54) K/mm3 Baso # (Auto) 0.05 (0.01-0.08) K/mm3 Manual Slide Review Normal smear PT (9.7-12.0) SECONDS INR APTT (22-31) SECONDS Sodium 146 H (136-145) mEq/L Potassium 3.4 L (3.5-5.1) mEq/L Chloride 105 (98-107) mEq/L Carbon Dioxide 24 (21-32) mEq/L Anion Gap 20.4 H (5-15) BUN 8 (7-18) mg/dL Creatinine 1.1 (0.7-1.3) mg/dL Est Cr Clr Drug Dosing 109.34 mL/min Estimated GFR (MDRD) > 60 (>60) mL/min BUN/Creatinine Ratio 7.3 L (14-18) Glucose 134 H (74-106) mg/dL Calcium 9.2 (8.5-10.1) mg/dL Magnesium 1.8 (1.8-2.4) mg/dl Total Bilirubin 1.5 H (0.2-1.0) mg/dL Direct Bilirubin 0.30 H (0.0-0.2) mg/dl AST 18 (15-37) U/L ALT 36 (16-63) U/L Alkaline Phosphatase 58 (46-116) U/L Total Protein 7.9 (6.4-8.2) g/dl Albumin 4.3 (3.4-5.0) g/dl Globulin 3.6 gm/dL Albumin/Globulin Ratio 1.2 (1-2) Lipase 108 (73-393) U/L Urine Color (Yellow) Urine Appearance (Clear) Urine pH (5.0-8.0) Ur Specific [place] (1.005-1.030) Urine Protein (Negative) Urine Glucose (UA) (Negative) Urine Ketones (Negative) Urine Occult Blood (Negative) Urine Nitrite (Negative) Urine Bilirubin (Negative) Urine Urobilinogen (0.2-1.0) Ur Leukocyte Esterase (Negative) Urine RBC (0-5) /hpf Urine WBC (0-5) /hpf Ur Squamous Epith Cells (0-5) /hpf Urine Bacteria (FEW) /hpf Urine Mucus (FEW) /hpf Urine Opiates Screen (JUDGIJ=153) Ur Buprenorphine Scrn (CUTOFF=10) Ur Oxycodone Screen (VZJ5NG=701) Urine Methadone Screen (NVF0JS=487) Ur Propoxyphene Screen (JCDDNK=554) Ur Barbiturates Screen (DMFXCJ=407) Ur Tricyclics Screen (ETICID=128) Ur Phencyclidine Scrn (CUTOFF=25) Ur Amphetamine Screen (WTNLAH=756) U Methamphetamines Scrn (AZBSHM=003) U Benzodiazepines Scrn (WXSTJQ=460) U Cocaine Metab Screen (NHAZFB=765) U Marijuana (THC) Screen (CUTOFF=50) COVID-19 (KIKI) (NEGATIVE) 03/27/20 03/27/20 03/28/20 Range/Units 23:13 23:13 00:04 WBC (4.23-9.07) K/mm3 RBC (4.63-6.08) M/mm3 Hgb (13.7-17.5) gm/dl Hct (40.1-51.0) % MCV (79.0-92.2) fl MCH (25.7-32.2) pg MCHC (32.2-35.5) g/dl RDW Std Deviation (35.1-43.9) fL Plt Count (163-337) K/mm3 MPV (9.4-12.3) fl Neut % (Auto) (34.0-67.9) % Lymph % (Auto) (21.8-53.1) % [place] % (Auto) (5.3-12.2) % Eos % (Auto) (0.8-7.0) Baso % (Auto) (0.1-1.2) % Neut # (Auto) (1.78-5.38) K/mm3 Lymph # (Auto) (1.32-3.57) K/mm3 [place] # (Auto) (0.30-0.82) K/mm3 Eos # (Auto) (0.04-0.54) K/mm3 Baso # (Auto) (0.01-0.08) K/mm3 Manual Slide Review PT (9.7-12.0) SECONDS INR APTT (22-31) SECONDS Sodium (136-145) mEq/L Potassium (3.5-5.1) mEq/L Chloride (98-107) mEq/L Carbon Dioxide (21-32) mEq/L Anion Gap (5-15) BUN (7-18) mg/dL Creatinine (0.7-1.3) mg/dL Est Cr Clr Drug Dosing mL/min Estimated GFR (MDRD) (>60) mL/min BUN/Creatinine Ratio (14-18) Glucose (74-106) mg/dL Calcium (8.5-10.1) mg/dL Magnesium (1.8-2.4) mg/dl Total Bilirubin (0.2-1.0) mg/dL Direct Bilirubin (0.0-0.2) mg/dl AST (15-37) U/L ALT (16-63) U/L Alkaline Phosphatase (46-116) U/L Total Protein (6.4-8.2) g/dl Albumin (3.4-5.0) g/dl Globulin gm/dL Albumin/Globulin Ratio (1-2) Lipase (73-393) U/L Urine Color Yellow (Yellow) Urine Appearance Clear (Clear) Urine pH 6.0 (5.0-8.0) Ur Specific [place] 1.025 (1.005-1.030) Urine Protein Negative (Negative) Urine Glucose (UA) Negative (Negative) Urine Ketones 4+ H (Negative) Urine Occult Blood Trace-lysed H (Negative) Urine Nitrite Negative (Negative) Urine Bilirubin Negative (Negative) Urine Urobilinogen 0.2 (0.2-1.0) Ur Leukocyte Esterase Negative (Negative) Urine RBC 0-5 (0-5) /hpf Urine WBC Not seen (0-5) /hpf Ur Squamous Epith Cells 0-5 (0-5) /hpf Urine Bacteria Not seen (FEW) /hpf Urine Mucus Not seen (FEW) /hpf Urine Opiates Screen Negative (XRGKLJ=566) Ur Buprenorphine Scrn Negative (CUTOFF=10) Ur Oxycodone Screen Negative (MUO4IT=939) Urine Methadone Screen Negative (WZM5DT=903) Ur Propoxyphene Screen Negative (IPHVRE=811) Ur Barbiturates Screen Negative (CMAREX=032) Ur Tricyclics Screen Negative (YTTXRV=563) Ur Phencyclidine Scrn Negative (CUTOFF=25) Ur Amphetamine Screen Negative (ELKRGF=876) U Methamphetamines Scrn Negative (QQIRSD=036) U Benzodiazepines Scrn Negative (JKAOTU=514) U Cocaine Metab Screen Negative (AGCDIQ=764) U Marijuana (THC) Screen Presumptive positive H (CUTOFF=50) COVID-19 (KIKI) Negative (NEGATIVE) 03/28/20 03/28/20 03/28/20 Range/Units 05:05 05:05 05:05 WBC 12.11 H (4.23-9.07) K/mm3 RBC 4.15 L (4.63-6.08) M/mm3 Hgb 13.1 L D (13.7-17.5) gm/dl Hct 39.5 L (40.1-51.0) % MCV 95.2 H (79.0-92.2) fl MCH 31.6 (25.7-32.2) pg MCHC 33.2 (32.2-35.5) g/dl RDW Std Deviation 40.7 (35.1-43.9) fL Plt Count 230 (163-337) K/mm3 MPV 11.0 (9.4-12.3) fl Neut % (Auto) 68.6 H (34.0-67.9) % Lymph % (Auto) 22.2 (21.8-53.1) % [place] % (Auto) 8.5 (5.3-12.2) % Eos % (Auto) 0.2 L (0.8-7.0) Baso % (Auto) 0.3 (0.1-1.2) % Neut # (Auto) 8.31 H (1.78-5.38) K/mm3 Lymph # (Auto) 2.69 (1.32-3.57) K/mm3 [place] # (Auto) 1.03 H (0.30-0.82) K/mm3 Eos # (Auto) 0.02 L (0.04-0.54) K/mm3 Baso # (Auto) 0.04 (0.01-0.08) K/mm3 Manual Slide Review PT 12.1 H (9.7-12.0) SECONDS INR 1.12 APTT 30 (22-31) SECONDS Sodium 143 (136-145) mEq/L Potassium 3.4 L (3.5-5.1) mEq/L Chloride 106 (98-107) mEq/L Carbon Dioxide 27 (21-32) mEq/L Anion Gap 13.4 (5-15) BUN 6 L (7-18) mg/dL Creatinine 0.9 (0.7-1.3) mg/dL Est Cr Clr Drug Dosing 133.63 mL/min Estimated GFR (MDRD) > 60 (>60) mL/min BUN/Creatinine Ratio 6.7 L (14-18) Glucose 128 H (74-106) mg/dL Calcium 8.5 (8.5-10.1) mg/dL Magnesium 2.0 (1.8-2.4) mg/dl Total Bilirubin 1.1 H (0.2-1.0) mg/dL Direct Bilirubin (0.0-0.2) mg/dl AST 16 (15-37) U/L ALT 32 (16-63) U/L Alkaline Phosphatase 50 (46-116) U/L Total Protein 6.7 (6.4-8.2) g/dl Albumin 3.6 (3.4-5.0) g/dl Globulin 3.1 gm/dL Albumin/Globulin Ratio 1.2 (1-2) Lipase (73-393) U/L Urine Color (Yellow) Urine Appearance (Clear) Urine pH (5.0-8.0) Ur Specific [place] (1.005-1.030) Urine Protein (Negative) Urine Glucose (UA) (Negative) Urine Ketones (Negative) Urine Occult Blood (Negative) Urine Nitrite (Negative) Urine Bilirubin (Negative) Urine Urobilinogen (0.2-1.0) Ur Leukocyte Esterase (Negative) Urine RBC (0-5) /hpf Urine WBC (0-5) /hpf Ur Squamous Epith Cells (0-5) /hpf Urine Bacteria (FEW) /hpf Urine Mucus (FEW) /hpf Urine Opiates Screen (RJDSWD=363) Ur Buprenorphine Scrn (CUTOFF=10) Ur Oxycodone Screen (UMC8ZA=580) Urine Methadone Screen (CVF6IU=942) Ur Propoxyphene Screen (KVCKUO=038) Ur Barbiturates Screen (RUYOAH=215) Ur Tricyclics Screen (PYQLXO=468) Ur Phencyclidine Scrn (CUTOFF=25) Ur Amphetamine Screen (PRYRTR=869) U Methamphetamines Scrn (EEHNGR=388) U Benzodiazepines Scrn (KCIVOE=707) U Cocaine Metab Screen (SNPYVO=414) U Marijuana (THC) Screen (CUTOFF=50) COVID-19 (KIKI) (NEGATIVE) Result Diagrams: 03/28/20 05:05 03/28/20 05:05 Sepsis Event Note - Evaluation Sepsis Screening Result: No Definite Risk - Focused Exam Vital Signs: Vital Signs Temp Pulse Resp BP Pulse Ox 03/28/20 07:47 36.7 C 82 20 134/75 97 03/28/20 05:15 36.9 C 62 20 121/75 97 03/28/20 01:16 36.3 C 64 16 131/83 93 L Date Exam was Performed: 03/28/20 Time Exam was Performed: 11:06 *Q Meaningful Use (ADM) - VTE Risk Assess *Q Each Risk Factor Represents 1 Point: None Total Score 1 Point Risk Factors: 0 Consult PN Assessment/Plan Problem List Initiated/Reviewed/Updated: Yes My Orders Last 24 Hours: My Active Orders 03/28/20 10:51 Schedule Procedure [COMM] Routine Plan: Leukocytosis and what appears to be thickening of the duodenum on CT, along with symptoms of chronic epigastric pain and vomiting, are suggestive of some inflammatory process at the duodenum with partial gastric outlet obstruction. Differential includes Crohn disease vs peptic ulcer disease. Agree with NG decompression and empiric PPI therapy. Plan for diagnostic upper endoscopy today. I reviewed the procedure with the patient including risk of perforation, and all questions were answered prior to obtaining signed informed consent.
[2020-03-28] MEDS ORDERED: Lidocaine 1% 4 ML ONE (11:13)
[2020-03-28] MEDS ORDERED: Propofol 200 MG/20 ML SDV ONE ×2 (11:13→11:55)
[2020-03-28] MEDS ORDERED: fentaNYL 100 MCG/2 ML SDV ONE (11:19)
--- NOTE | 2020-03-28 13:05 | PCM.PRNOTE ---
- Free Text/Narrative Note: Date: 03/28/2020 Procedure: diagnostic upper endoscopy Indication: epigastric pain, nausea and vomiting Endoscopist: Edwin Renae MD Findings: some minor narrowing/resistance at the pylorus, traversed with the endoscope. Normal appearing duodenum with second portion well visualized. No ulceration or mass noted. Small hiatal hernia with low grade mucosal irritation at the distal esophagus. Detailed Report: The patient was taken to the endoscopy suite and placed in left lateral decubitus position. Time out was performed and monitored anesthesia care initiated. A bite block was placed and the endoscope inserted into the mouth. The scope was advanced to the pylorus, at which point there was some narrowing and resistance to advancing the scope, but this was not difficult to traverse with the scope with persistent, measured pressure. The duodenum appeared normal, and was well visualized beyond the ampulla. A sample mucosal biopsy was obtained with forceps. The stomach appeared normal without any masses or ulceration, though there was a fair amount of residual fluid in the stomach on entry with the endoscope. A sample of the antrum was obtained. No abnormality was noted on retroflexion within the stomach. From within the distal esophagus, there did appear to be a small sliding hiatal hernia, and some mild mucosal changes of the distal esophagus. A biopsy of distal esophagus was obtained. The remainder of the esophagus appeared normal. Air was suctioned from the stomach and the scope completely withdrawn. The patient tolerated the procedure well.
--- NOTE | 2020-03-28 13:09 | PCM48HPAN ---
Post Anesthesia Note - EVALUATION WITHIN 48HRS OF ANESTHETIC Vital Signs in Normal Range: Yes Patient Participated in Evaluation: Yes Respiratory Function Stable: Yes Airway Patent: Yes Cardiovascular Function Stable: Yes Hydration Status Stable: Yes Pain Control Satisfactory: Yes Nausea and Vomiting Control Satisfactory: Yes Mental Status Recovered: Yes Vital Signs: Last Vital Signs Temp 98.8 F 03/28/20 12:25 Pulse 74 03/28/20 12:47 Resp 16 03/28/20 12:25 BP 134/82 03/28/20 12:47 Pulse Ox 93 L 03/28/20 12:47
[2020-03-28] MEDS ORDERED: Scopolamine 1.5 MG Transdermal Patch TRDERM PRN (17:12)
[2020-03-28] MEDS ORDERED: Promethazine 12.5 MG in Sodium Chloride 0.9% 50 ML IV PRN (17:13)
[2020-03-29] MEDS: D5 1/2 NS w/ 20 mEq/L KCl 1,000 ML IV SCH ×2 (03:25→12:16)
[2020-03-29] MEDS: Ondansetron 4 MG/2 ML SDV IV PRN (06:40)
[2020-03-29] MEDS: HYDROmorphone 0.5 MG/0.5 ML Syringe IVPUSH PRN ×2 (06:40→09:23)
--- NOTE | 2020-03-29 07:12 | PCM.PN ---
- General Info Date of Service: 03/29/20 Admission Dx/Problem (Free Text): Admission Diagnosis/Problem Admission Diagnosis/Problem Ileus Subjective Update: 03/29/20: No significant overnight issues. He did well overnight but started vomiting this morning. His sodium and and potassium level are now back to normal. He is afebrile and still complaints of belly pain. He has been getting dilaudid round the clock. Functional Status: Reports: Pain Controlled, Ambulating, Urinating. Denies: Tolerating Diet, New Symptoms - Review of Systems General: Denies: Fever, Chills HEENT: Reports: No Symptoms Pulmonary: Denies: Shortness of Breath, Wheezing Cardiovascular: Denies: Chest Pain, Dyspnea on Exertion, Lightheadedness Gastrointestinal: Reports: Abdominal Pain, Decreased Appetite, Nausea, Vomiting Genitourinary: Reports: No Symptoms Musculoskeletal: Reports: No Symptoms Skin: Reports: No Symptoms Neurological: Denies: Dizziness, Headache, Numbness, Syncope, Tingling, Gait Disturbance Psychiatric: Denies: Depression, Anxiety, Agitation, Hallucinations, Suicidal Ideation - Patient Data Vitals - Most Recent: Last Vital Signs Temp 36.7 C 03/29/20 03:28 Pulse 55 L 03/29/20 03:28 Resp 12 03/29/20 03:28 BP 127/70 03/29/20 03:28 Pulse Ox 96 03/29/20 03:28 Weight - Most Recent: 97.795 kg I&O - Last 24 Hours: Intake & Output 03/28/20 03/29/20 03/29/20 22:59 06:59 14:59 Intake Total 1999 1349 Output Total 700 1550 Balance 1300 -201 Lab Results Last 24 Hours: Laboratory Results - last 24 hr 03/28/20 03/29/20 03/29/20 Range/Units 05:05 04:37 04:37 WBC 12.03 H (4.23-9.07) K/mm3 RBC 4.29 L (4.63-6.08) M/mm3 Hgb 13.4 L (13.7-17.5) gm/dl Hct 41.1 (40.1-51.0) % MCV 95.8 H (79.0-92.2) fl MCH 31.2 (25.7-32.2) pg MCHC 32.6 (32.2-35.5) g/dl RDW Std Deviation 40.9 (35.1-43.9) fL Plt Count 212 (163-337) K/mm3 MPV 10.7 (9.4-12.3) fl Neut % (Auto) 66.7 (34.0-67.9) % Lymph % (Auto) 22.4 (21.8-53.1) % [place] % (Auto) 9.8 (5.3-12.2) % Eos % (Auto) 0.4 L (0.8-7.0) Baso % (Auto) 0.5 (0.1-1.2) % Neut # (Auto) 8.03 H (1.78-5.38) K/mm3 Lymph # (Auto) 2.69 (1.32-3.57) K/mm3 [place] # (Auto) 1.18 H (0.30-0.82) K/mm3 Eos # (Auto) 0.05 (0.04-0.54) K/mm3 Baso # (Auto) 0.06 (0.01-0.08) K/mm3 Sodium 143 143 (136-145) mEq/L Potassium 3.4 L 3.6 (3.5-5.1) mEq/L Chloride 106 106 (98-107) mEq/L Carbon Dioxide 27 27 (21-32) mEq/L Anion Gap 13.4 13.6 (5-15) BUN 6 L 4 L (7-18) mg/dL Creatinine 0.9 0.9 (0.7-1.3) mg/dL Est Cr Clr Drug Dosing 133.63 133.63 mL/min Estimated GFR (MDRD) > 60 > 60 (>60) mL/min BUN/Creatinine Ratio 6.7 L 4.4 L (14-18) Glucose 128 H 115 H (74-106) mg/dL Calcium 8.5 8.8 (8.5-10.1) mg/dL Magnesium 2.0 1.9 (1.8-2.4) mg/dl Total Bilirubin 1.1 H 1.7 H (0.2-1.0) mg/dL AST 16 14 L (15-37) U/L ALT 32 30 (16-63) U/L Alkaline Phosphatase 50 47 (46-116) U/L Total Protein 6.7 6.6 (6.4-8.2) g/dl Albumin 3.6 3.5 (3.4-5.0) g/dl Globulin 3.1 3.1 gm/dL Albumin/Globulin Ratio 1.2 1.1 (1-2) Med Orders - Current: Current Medications Hydromorphone HCl (Dilaudid) 0.5 mg IVPUSH Q2H PRN PRN Reason: Pain (severe 7-10) Last Admin: 03/29/20 06:40 Dose: 0.5 mg Documented by: Potassium Chloride/Dextrose/Sod Cl (D5 1/2 Ns W/ 20 Meq/L Kcl) 1,000 mls @ 125 mls/hr IV ASDIRECTED [facility] Last Admin: 03/29/20 03:25 Dose: 125 mls/hr Documented by: Promethazine HCl 12.5 mg/ (Sodium Chloride) 50.5 mls @ 100 mls/hr IV Q6H PRN PRN Reason: Nausea/Vomiting Miscellaneous Information (Remove Patch) 0 ea TRDERM ASDIRECTED [facility] Ondansetron HCl (Zofran) 4 mg IV Q4H PRN PRN Reason: Nausea/Vomiting Last Admin: 03/29/20 06:40 Dose: 4 mg Documented by: Pantoprazole Sodium (Protonix Iv) 40 mg IV Q12HR [facility] Last Admin: 03/28/20 20:50 Dose: 40 mg Documented by: Scopolamine (Transderm-Scop) 1.5 mg TRDERM Q72H PRN PRN Reason: Nausea/Vomiting Last Admin: 03/28/20 17:28 Dose: 1.5 mg Documented by: Sodium Chloride (Saline Flush) 10 ml FLUSH ASDIRECTED PRN PRN Reason: Keep Vein Open Last Admin: 03/27/20 21:42 Dose: 10 ml Documented by: Discontinued Medications Diatrizoate Meglum/Diatrizoate Sod (Gastrografin 37%) 90 ml PO ONETIME ONE Stop: 03/27/20 22:54 Last Admin: 03/27/20 22:54 Dose: 90 ml Documented by: Fentanyl (Sublimaze) Confirm Administered Dose 100 mcg .ROUTE .STK-MED ONE Stop: 03/28/20 11:20 Hydromorphone HCl (Dilaudid) 1 mg IVPUSH ONETIME ONE Stop: 03/27/20 21:12 Last Admin: 03/27/20 21:31 Dose: 1 mg Documented by: Hydromorphone HCl (Dilaudid) 1 mg IVPUSH ONETIME ONE Stop: 03/27/20 23:44 Last Admin: 03/27/20 23:50 Dose: 1 mg Documented by: Sodium Chloride (Normal Saline) 1,000 mls @ 1,000 mls/hr IV .BOLUS STA Stop: 03/27/20 22:08 Last Admin: 03/27/20 21:31 Dose: 1,000 mls/hr Documented by: Potassium Chloride 10 meq/ (Premix) 100 mls @ 100 mls/hr IV Q1H MEDINA Stop: 03/28/20 12:59 Last Admin: 03/28/20 16:01 Dose: 100 mls/hr Documented by: Lidocaine HCl (Xylocaine-Mpf 1%) Confirm Administered Dose 4 mls @ as directed .ROUTE .STK-MED ONE Stop: 03/28/20 11:14 Iopamidol (Isovue-300 (61%)) 100 ml IVPUSH ONETIME ONE Stop: 03/27/20 22:54 Last Admin: 03/27/20 22:54 Dose: 100 ml Documented by: Lidocaine HCl (Xylocaine 2% Jelly) Confirm Administered Dose 10 ml .ROUTE .STK- MED ONE Stop: 03/27/20 23:37 Last Admin: 03/28/20 05:15 Dose: Not Given Documented by: Ondansetron HCl (Zofran) 4 mg IVPUSH ONETIME ONE Stop: 03/27/20 21:10 Last Admin: 03/27/20 21:31 Dose: 4 mg Documented by: Pantoprazole Sodium (Protonix Iv) 80 mg IVPUSH BOLUS ONE Stop: 03/27/20 23:31 Last Admin: 03/27/20 23:42 Dose: 80 mg Documented by: Propofol (Diprivan 20 Ml) Confirm Administered Dose 400 mg .ROUTE .STK-MED ONE Stop: 03/28/20 11:14 Propofol (Diprivan 20 Ml) Confirm Administered Dose 200 mg .ROUTE .STK-MED ONE Stop: 03/28/20 11:56 - Exam General: Alert, Oriented, Cooperative, No Acute Distress HEENT: Pupils Equal, Pupils Reactive, EOMI, Mucous Membr. Moist/[place] Neck: Supple Lungs: Clear to Auscultation, Normal Respiratory Effort Cardiovascular: Regular Rate, Regular Rhythm GI/Abdominal Exam: Normal Bowel Sounds, Soft, Non-Tender, No Organomegaly, No Distention (Male) Exam: Deferred Back Exam: Normal Inspection, Full Range of Motion Extremities: Normal Inspection, Normal Range of Motion, Non-Tender, No Pedal Edema, Normal Capillary Refill Peripheral Pulses: 2+: Dorsalis Pedis (L), Dorsalis Pedis (R) Skin: Warm, Dry, Intact Neurological: No New Focal Deficit Psy/Mental Status: Alert, Normal Affect, Normal Mood Sepsis Event Note - Evaluation Sepsis Screening Result: No Definite Risk - Focused Exam Vital Signs: Vital Signs Temp Pulse Resp BP Pulse Ox 03/29/20 03:28 36.7 C 55 L 12 127/70 96 03/28/20 20:48 37.3 C 69 12 124/83 97 Date Exam was Performed: 03/29/20 Time Exam was Performed: 16:28 - Problem List Review Problem List Initiated/Reviewed/Updated: Yes - My Orders Last 24 Hours: My Active Orders 03/28/20 17:12 Scopolamine [Transderm-Scop] 1.5 mg TRDERM Q72H PRN 03/28/20 17:13 Promethazine [Phenergan] 12.5 mg Sodium Chloride 0.9% [Normal Saline] 50 ml IV Q6H 03/28/20 17:30 Remove Patch 0 ea TRDERM ASDIRECTED 03/29/20 Breakfast NPO [Nothing Per Oral Diet] [DIET] - Plan Plan:: Assessment * Small hiatal hernia with low grade mucosal irritation at the distal esophagus status post endoscopy-patient has a 2-month history of nausea, vomiting, and abdominal pain that has gradually worsened. He was hospitalized for 3 nights at the end of February and did not have endoscopy done at that time. Corrected CT scan report revealed no acute abnormal findings. * Leukocytosis -WBC 13.47, 80% neutrophils without bandemia-likely vomiting and stress worsening leukocytosis. WBC is now down to 12.03. Improved. He remains afebrile. No indication for antibiotic. * Chronic daily marijuana use possibly leading to worsening of symptoms secondary to hyperemesis of chronic cannabis use. Counseled on recreational marijuana abuse. Treatment is mainly supportive with PPI, antiemetic agents and capsaicin cream for abdominal pain. Educated patient opioid is not a good pain management and it will increases his addiction risk. Resolved * Hypernatremia and hypokalemia -sodium 146, potassium 3.4 -hypernatremia secondary to volume contraction and potassium loss secondary to emesis. Resolved. * Elevated anion gap -anion gap 20.4 -likely secondary to volume contraction due to chronic emesis. Resolved * Elevated blood pressure without diagnosis of hypertension -likely secondary to vomiting. Resolved. 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 Increased dose to 1 mg IV Q4H but discouraged patient from frequent use. Educated him the side effects of it and increased risk of addiction to opioid. Ordered capsaicin cream as we do not carry it on formulary.
[2020-03-29] MEDS: Pantoprazole 40 MG Vial IV SCH ×2 (08:16→20:39)
[2020-03-29] MEDS ORDERED: HYDROmorphone 0.5 MG/0.5 ML Syringe IVPUSH PRN (09:46)
--- NOTE | 2020-03-29 11:46 | PCM.SN.2 ---
- Free Text/Narrative Note: HD 2, admitted with epigastric pain and vomiting. Endoscopy yesterday was fairly unremarkable, with finding of small sliding hiatal hernia. Biopsy results pending. Currently being treated for marijuana-associated hyperemesis. S: some nausea earlier this morning, but no symptoms of nausea or pain currently. Reports episodes of pain are worse immediately after eating or drinking. O: AF-sinus bradycardia, other VSS no distress abdomen soft, nontender A: Chronic epigastric pain with leukocytosis and unconjugated hyperbilirubinemia without evidence of anemia or hemolysis on peripheral smear. Endoscopic findings yesterday were unremarkable save for small sliding hiatal hernia. The hyperbilirubinemia may be attributable to something like Gilbert syndrome, but the conjugated portion on labwork at admission was >15%. Other LFTs normal. If symptoms persist, it may be useful to obtain a RUQ US to rule out gallstone disease. P: Agree with current management. If patient's symptoms are improved and he can tolerate a diet I expect discharge from the hospital soon. If he has ongoing symptoms I recommend ruling out cholelithiasis with ultrasound. He reported findings of colitis when hospitalized in [place]; if indicated, he can follow up outpatient regarding diagnostic colonoscopy although from his description of symptoms it seems to be more of an upper GI issue.
[2020-03-29] MEDS: CAPZASIN HP TOP PRN (12:18)
[2020-03-30] MEDS: D5 1/2 NS w/ 20 mEq/L KCl 1,000 ML IV SCH ×2 (01:52→11:12)
--- NOTE | 2020-03-30 06:19 | PCM.PN ---
- General Info Date of Service: 03/30/20 Admission Dx/Problem (Free Text): Admission Diagnosis/Problem Admission Diagnosis/Problem Ileus Subjective Update: 03/30/20: No change in condition. Capsaicin is really working well for him. He has no symptoms this morning. His vitals remains fairly stable. 03/29/20: No significant overnight issues. He did well overnight but started vomiting this morning. His sodium and and potassium level are now back to normal. He is afebrile and still complaints of belly pain. He has been getting dilaudid round the clock. Functional Status: Reports: Pain Controlled, Ambulating, Urinating. Denies: New Symptoms - Review of Systems General: Denies: Fever, Chills HEENT: Reports: No Symptoms Pulmonary: Denies: Shortness of Breath Cardiovascular: Denies: Chest Pain, Dyspnea on Exertion, Lightheadedness Gastrointestinal: Reports: Abdominal Pain. Denies: Nausea, Vomiting Genitourinary: Reports: No Symptoms Musculoskeletal: Reports: No Symptoms Skin: Reports: No Symptoms Neurological: Reports: No Symptoms Psychiatric: Denies: Mood Lability, Anxiety, Agitation, Hallucinations, Suicidal Ideation, Homicidal Ideation - Patient Data Vitals - Most Recent: Last Vital Signs Temp 36.2 C 03/30/20 04:23 Pulse 40 L 03/30/20 04:23 Resp 14 03/30/20 04:23 BP 119/67 03/30/20 04:23 Pulse Ox 98 03/30/20 04:23 Weight - Most Recent: 96.797 kg I&O - Last 24 Hours: Intake & Output 03/29/20 03/29/20 03/30/20 14:59 22:59 06:59 Intake Total 2424 Output Total 100 Balance 2324 Lab Results Last 24 Hours: Laboratory Results - last 24 hr 03/29/20 03/30/20 03/30/20 Range/Units 04:37 04:38 04:38 WBC 9.68 H (4.23-9.07) K/mm3 RBC 4.39 L (4.63-6.08) M/mm3 Hgb 13.7 (13.7-17.5) gm/dl Hct 42.0 (40.1-51.0) % MCV 95.7 H (79.0-92.2) fl MCH 31.2 (25.7-32.2) pg MCHC 32.6 (32.2-35.5) g/dl RDW Std Deviation 40.4 (35.1-43.9) fL Plt Count 207 (163-337) K/mm3 MPV 11.1 (9.4-12.3) fl Neut % (Auto) 53.2 (34.0-67.9) % Lymph % (Auto) 34.0 (21.8-53.1) % [place] % (Auto) 11.1 (5.3-12.2) % Eos % (Auto) 0.7 L (0.8-7.0) Baso % (Auto) 0.6 (0.1-1.2) % Neut # (Auto) 5.15 (1.78-5.38) K/mm3 Lymph # (Auto) 3.29 (1.32-3.57) K/mm3 [place] # (Auto) 1.07 H (0.30-0.82) K/mm3 Eos # (Auto) 0.07 (0.04-0.54) K/mm3 Baso # (Auto) 0.06 (0.01-0.08) K/mm3 Sodium 143 141 (136-145) mEq/L Potassium 3.6 3.5 (3.5-5.1) mEq/L Chloride 106 106 (98-107) mEq/L Carbon Dioxide 27 28 (21-32) mEq/L Anion Gap 13.6 10.5 (5-15) BUN 4 L 6 L (7-18) mg/dL Creatinine 0.9 1.1 (0.7-1.3) mg/dL Est Cr Clr Drug Dosing 133.63 109.34 mL/min Estimated GFR (MDRD) > 60 > 60 (>60) mL/min BUN/Creatinine Ratio 4.4 L 5.5 L (14-18) Glucose 115 H 110 H (74-106) mg/dL Calcium 8.8 9.0 (8.5-10.1) mg/dL Magnesium 1.9 2.0 (1.8-2.4) mg/dl Total Bilirubin 1.7 H 1.4 H (0.2-1.0) mg/dL AST 14 L 13 L (15-37) U/L ALT 30 27 (16-63) U/L Alkaline Phosphatase 47 46 (46-116) U/L Total Protein 6.6 6.7 (6.4-8.2) g/dl Albumin 3.5 3.6 (3.4-5.0) g/dl Globulin 3.1 3.1 gm/dL Albumin/Globulin Ratio 1.1 1.2 (1-2) Med Orders - Current: Current Medications Hydromorphone HCl (Dilaudid) 1 mg IVPUSH Q4H PRN PRN Reason: Pain (severe 7-10) Potassium Chloride/Dextrose/Sod Cl (D5 1/2 Ns W/ 20 Meq/L Kcl) 1,000 mls @ 125 mls/hr IV ASDIRECTED [facility] Last Admin: 03/30/20 01:52 Dose: 125 mls/hr Documented by: Promethazine HCl 12.5 mg/ (Sodium Chloride) 50.5 mls @ 100 mls/hr IV Q6H PRN PRN Reason: Nausea/Vomiting Last Admin: 03/29/20 08:16 Dose: 100 mls/hr Documented by: Miscellaneous Information (Remove Patch) 0 ea TRDERM ASDIRECTED [facility] Capzasin-Hp Topical (Cream (Nf)) 0 each TOP Q1H PRN PRN Reason: HYPEREMESIS SYNDROME RELIEF Last Admin: 03/29/20 12:18 Dose: 1 each Documented by: Ondansetron HCl (Zofran) 4 mg IV Q4H PRN PRN Reason: Nausea/Vomiting Last Admin: 03/29/20 06:40 Dose: 4 mg Documented by: Pantoprazole Sodium (Protonix Iv) 40 mg IV Q12HR [facility] Last Admin: 03/29/20 20:39 Dose: 40 mg Documented by: Scopolamine (Transderm-Scop) 1.5 mg TRDERM Q72H PRN PRN Reason: Nausea/Vomiting Last Admin: 03/28/20 17:28 Dose: 1.5 mg Documented by: Sodium Chloride (Saline Flush) 10 ml FLUSH ASDIRECTED PRN PRN Reason: Keep Vein Open Last Admin: 03/27/20 21:42 Dose: 10 ml Documented by: Discontinued Medications Diatrizoate Meglum/Diatrizoate Sod (Gastrografin 37%) 90 ml PO ONETIME ONE Stop: 03/27/20 22:54 Last Admin: 03/27/20 22:54 Dose: 90 ml Documented by: Fentanyl (Sublimaze) Confirm Administered Dose 100 mcg .ROUTE .STK-MED ONE Stop: 03/28/20 11:20 Hydromorphone HCl (Dilaudid) 1 mg IVPUSH ONETIME ONE Stop: 03/27/20 21:12 Last Admin: 03/27/20 21:31 Dose: 1 mg Documented by: Hydromorphone HCl (Dilaudid) 1 mg IVPUSH ONETIME ONE Stop: 03/27/20 23:44 Last Admin: 03/27/20 23:50 Dose: 1 mg Documented by: Hydromorphone HCl (Dilaudid) 0.5 mg IVPUSH Q2H PRN PRN Reason: Pain (severe 7-10) Last Admin: 03/29/20 09:23 Dose: 0.5 mg Documented by: Sodium Chloride (Normal Saline) 1,000 mls @ 1,000 mls/hr IV .BOLUS STA Stop: 03/27/20 22:08 Last Admin: 03/27/20 21:31 Dose: 1,000 mls/hr Documented by: Potassium Chloride 10 meq/ (Premix) 100 mls @ 100 mls/hr IV Q1H [facility]INA Stop: 03/28/20 12:59 Last Admin: 03/28/20 16:01 Dose: 100 mls/hr Documented by: Lidocaine HCl (Xylocaine-Mpf 1%) Confirm Administered Dose 4 mls @ as directed .ROUTE .STK-MED ONE Stop: 03/28/20 11:14 Iopamidol (Isovue-300 (61%)) 100 ml IVPUSH ONETIME ONE Stop: 03/27/20 22:54 Last Admin: 03/27/20 22:54 Dose: 100 ml Documented by: Lidocaine HCl (Xylocaine 2% Jelly) Confirm Administered Dose 10 ml .ROUTE .STK- MED ONE Stop: 03/27/20 23:37 Last Admin: 03/28/20 05:15 Dose: Not Given Documented by: Ondansetron HCl (Zofran) 4 mg IVPUSH ONETIME ONE Stop: 03/27/20 21:10 Last Admin: 03/27/20 21:31 Dose: 4 mg Documented by: Pantoprazole Sodium (Protonix Iv) 80 mg IVPUSH BOLUS ONE Stop: 03/27/20 23:31 Last Admin: 03/27/20 23:42 Dose: 80 mg Documented by: Propofol (Diprivan 20 Ml) Confirm Administered Dose 400 mg .ROUTE .STK-MED ONE Stop: 03/28/20 11:14 Propofol (Diprivan 20 Ml) Confirm Administered Dose 200 mg .ROUTE .STK-MED ONE Stop: 03/28/20 11:56 - Exam General: Alert, Oriented, Cooperative, No Acute Distress HEENT: Pupils Equal, Pupils Reactive, EOMI, Mucous Membr. Moist/[place] Neck: Supple Lungs: Clear to Auscultation, Normal Respiratory Effort Cardiovascular: Regular Rate, Regular Rhythm GI/Abdominal Exam: Normal Bowel Sounds, Soft, No Organomegaly, No Distention, No Abnormal Bruit (Male) Exam: Deferred Back Exam: Normal Inspection, Full Range of Motion Extremities: Normal Inspection, Normal Range of Motion, Non-Tender, No Pedal Edema, Normal Capillary Refill Peripheral Pulses: 2+: Dorsalis Pedis (L), Dorsalis Pedis (R) Skin: Warm, Dry, Intact Wound/Incisions: Healing Well Neurological: No New Focal Deficit, Normal Gait Psy/Mental Status: Alert, Normal Affect, Normal Mood Sepsis Event Note - Evaluation Sepsis Screening Result: No Definite Risk - Focused Exam Vital Signs: Vital Signs Temp Pulse Resp BP Pulse Ox Pulse Ox 03/30/20 04:23 36.2 C 40 L 14 119/67 98 03/30/20 01:02 37.1 C 56 L 16 123/64 95 03/30/20 01:00 95 03/29/20 20:35 36.4 C 55 L 11 L 120/86 95 Date Exam was Performed: 03/30/20 Time Exam was Performed: 18:12 - Problem List Review Problem List Initiated/Reviewed/Updated: Yes - My Orders Last 24 Hours: My Active Orders 03/29/20 Breakfast NPO [Nothing Per Oral Diet] [DIET] 03/29/20 09:36 Non-Formulary Medication [NF Drug] 0 each TOP Q1H PRN 03/29/20 09:46 HYDROmorphone [Dilaudid] 1 mg IVPUSH Q4H PRN - Plan Plan:: Assessment * Small hiatal hernia with low grade mucosal irritation at the distal esophagus status post endoscopy-patient has a 2-month history of nausea, vomiting, and abdominal pain that has gradually worsened. He was hospitalized for 3 nights at the end of February and did not have endoscopy done at that time. Corrected CT scan report revealed no acute abnormal findings. Improved. * Leukocytosis -WBC 13.47, 80% neutrophils without bandemia-likely vomiting and stress worsening leukocytosis. WBC is now down to 9.68. Continue to improve. He remains afebrile. No indication for antibiotic. * Chronic daily marijuana use possibly leading to worsening of symptoms secondary to hyperemesis of chronic cannabis use. Counseled on recreational marijuana abuse. Treatment is mainly supportive with PPI, antiemetic agents and capsaicin cream for abdominal pain. Educated patient opioid is not a good pain management and it will increases his addiction risk. Symptoms greatly improved. Resolved * Hypernatremia and hypokalemia -sodium 146, potassium 3.4 -hypernatremia secondary to volume contraction and potassium loss secondary to emesis. Resolved. * Elevated anion gap -anion gap 20.4 -likely secondary to volume contraction due to chronic emesis. Resolved * Elevated blood pressure without diagnosis of hypertension -likely secondary to vomiting. Resolved. Plan * Continue current treatment: it seems he maybe at recovery stage at this point * Okay to start clear liquid diet and advance as tolerated * General surgery following * Monitor e-lytes abnormality * Routine AM labs * Possible discharge in AM.
[2020-03-30] MEDS: Ondansetron 4 MG/2 ML SDV IV PRN (06:20)
[2020-03-30] MEDS: Pantoprazole 40 MG Vial IV SCH (08:23)
[2020-03-30] MEDS: CAPZASIN HP TOP PRN (08:24)
--- NOTE | 2020-03-30 18:21 | PCM.DCSUM1 ---
Discharge Summary - Hospital Course Brief History: This is a 25-year-old male with complaints of abdominal pain, nausea, and vomiting for last 2 to 2-1/2 months that improve with taking hot showers and was admitted for medical management of hyperemesis cannabinoid syndrome. Diagnosis: Stroke: No - Discharge Data Discharge Date: 03/30/20 Discharge Disposition: Home, Self-Care 01 Condition: Good - Referral to Home Health Primary Care Physician: Amarilys Grider MD - Patient Summary/Data Operative Procedure(s) Performed: None Complications: None Consults: Consultations 03/28/20 01:36 Consult to Physician [CONS] Routine Labs Pending at D/C: None Recommended Follow-up Testing/Procedures: None Planned Operative Procedure(s) after DC: None Hospital Course: Patient was primarily admitted for hyperemesis cannabinoid syndrome. He endorsed heavily daily use of recreational marijuana. He was on hyperemesis phase when he presented to us for admission. His work up included on abdominal CT scan with vague abnormal finding but negative on upper endoscopy performed by our surgeon, Dr. Renae. His treatment was mainly conservative with protonix, intravenous fluids, narcotics and capsaicin cream. Slowly, he improved on this regimen. His hospital course was essentially uncomplicated. He was discharged after he tolerated regular diet. Patient was counseled on substance abuse. He was advised to quit recreational marijuana as it was not good for him but also illegal here in [place]. - Patient Instructions Diet: Usual Diet as Tolerated Activity: As Tolerated Driving: May Drive Today Showering/Bathing: May Shower Notify Provider of: Fever, Increased Pain, Swelling and Redness, Nausea and/or Vomiting - Discharge Plan *PRESCRIPTION DRUG MONITORING PROGRAM REVIEWED*: Not Applicable *COPY OF PRESCRIPTION DRUG MONITORING REPORT IN PATIENT MARICRUZ: Not Applicable Home Medications: Home Meds Ondansetron [Zofran ODT] 4 mg SL Q4H PRN 03/27/20 [History] Patient Handouts: What You Need to Know About Marijuana Use, Cannabinoid Hyperemesis Syndrome Referrals: Amarilys Grider MD [Primary Care Provider] - (Follow up with a primary care physician as needed.) - Discharge Summary/Plan Comment DC Time >30 min.: No Discharge Summary/Plan Comment: Discharge to Home - General Info Date of Service: 03/30/20 Admission Dx/Problem (Free Text: Admission Diagnosis/Problem Admission Diagnosis/Problem Ileus Subjective Update: 03/30/20: No change in condition. Capsaicin is really working well for him. He has no symptoms this morning. His vitals remains fairly stable. 03/29/20: No significant overnight issues. He did well overnight but started vomiting this morning. His sodium and and potassium level are now back to normal. He is afebrile and still complaints of belly pain. He has been getting dilaudid round the clock. Functional Status: Reports: Pain Controlled, Tolerating Diet, Ambulating, Urinating - Review of Systems General: Denies: Fever, Chills HEENT: Reports: No Symptoms Pulmonary: Denies: Shortness of Breath Cardiovascular: Denies: Chest Pain, Dyspnea on Exertion, Lightheadedness Gastrointestinal: Denies: Abdominal Pain, Decreased Appetite, Nausea, Vomiting Genitourinary: Reports: No Symptoms Musculoskeletal: Reports: No Symptoms Skin: Reports: No Symptoms Neurological: Reports: No Symptoms Psychiatric: Denies: Mood Lability, Anxiety, Agitation, Cravings, Hallucinations, Suicidal Ideation, Homicidal Ideation - Patient Data Vitals - Most Recent: Last Vital Signs Temp 37.1 C 03/30/20 16:31 Pulse 59 L 03/30/20 16:31 Resp 18 03/30/20 16:31 BP 130/79 03/30/20 16:31 Pulse Ox 98 03/30/20 16:31 Weight - Most Recent: 96.797 kg I&O - Last 24 hours: Intake & Output 03/30/20 03/30/20 03/30/20 06:59 14:59 22:59 Intake Total 556 1516 Balance 556 1516 Lab Results - Last 24 hrs: Laboratory Results - last 24 hr 03/30/20 03/30/20 Range/Units 04:38 04:38 WBC 9.68 H (4.23-9.07) K/mm3 RBC 4.39 L (4.63-6.08) M/mm3 Hgb 13.7 (13.7-17.5) gm/dl Hct 42.0 (40.1-51.0) % MCV 95.7 H (79.0-92.2) fl MCH 31.2 (25.7-32.2) pg MCHC 32.6 (32.2-35.5) g/dl RDW Std Deviation 40.4 (35.1-43.9) fL Plt Count 207 (163-337) K/mm3 MPV 11.1 (9.4-12.3) fl Neut % (Auto) 53.2 (34.0-67.9) % Lymph % (Auto) 34.0 (21.8-53.1) % Clare % (Auto) 11.1 (5.3-12.2) % Eos % (Auto) 0.7 L (0.8-7.0) Baso % (Auto) 0.6 (0.1-1.2) % Neut # (Auto) 5.15 (1.78-5.38) K/mm3 Lymph # (Auto) 3.29 (1.32-3.57) K/mm3 Clare # (Auto) 1.07 H (0.30-0.82) K/mm3 Eos # (Auto) 0.07 (0.04-0.54) K/mm3 Baso # (Auto) 0.06 (0.01-0.08) K/mm3 Sodium 141 (136-145) mEq/L Potassium 3.5 (3.5-5.1) mEq/L Chloride 106 (98-107) mEq/L Carbon Dioxide 28 (21-32) mEq/L Anion Gap 10.5 (5-15) BUN 6 L (7-18) mg/dL Creatinine 1.1 (0.7-1.3) mg/dL Est Cr Clr Drug Dosing 109.34 mL/min Estimated GFR (MDRD) > 60 (>60) mL/min BUN/Creatinine Ratio 5.5 L (14-18) Glucose 110 H (74-106) mg/dL Calcium 9.0 (8.5-10.1) mg/dL Magnesium 2.0 (1.8-2.4) mg/dl Total Bilirubin 1.4 H (0.2-1.0) mg/dL AST 13 L (15-37) U/L ALT 27 (16-63) U/L Alkaline Phosphatase 46 (46-116) U/L Total Protein 6.7 (6.4-8.2) g/dl Albumin 3.6 (3.4-5.0) g/dl Globulin 3.1 gm/dL Albumin/Globulin Ratio 1.2 (1-2) Med Orders - Current: Current Medications Hydromorphone HCl (Dilaudid) 1 mg IVPUSH Q4H PRN PRN Reason: Pain (severe 7-10) Last Admin: 03/30/20 06:26 Dose: 1 mg Documented by: Potassium Chloride/Dextrose/Sod Cl (D5 1/2 Ns W/ 20 Meq/L Kcl) 1,000 mls @ 125 mls/hr IV ASDIRECTED [facility] Last Admin: 03/30/20 11:12 Dose: 125 mls/hr Documented by: Promethazine HCl 12.5 mg/ (Sodium Chloride) 50.5 mls @ 100 mls/hr IV Q6H PRN PRN Reason: Nausea/Vomiting Last Admin: 03/29/20 08:16 Dose: 100 mls/hr Documented by: Miscellaneous Information (Remove Patch) 0 ea TRDERM ASDIRECTED [facility] Capzasin-Hp Topical (Cream (Nf)) 0 each TOP Q1H PRN PRN Reason: HYPEREMESIS SYNDROME RELIEF Last Admin: 03/30/20 08:24 Dose: 1 each Documented by: Ondansetron HCl (Zofran) 4 mg IV Q4H PRN PRN Reason: Nausea/Vomiting Last Admin: 03/30/20 06:20 Dose: 4 mg Documented by: Pantoprazole Sodium (Protonix Iv) 40 mg IV Q12HR [facility] Last Admin: 03/30/20 08:23 Dose: 40 mg Documented by: Scopolamine (Transderm-Scop) 1.5 mg TRDERM Q72H PRN PRN Reason: Nausea/Vomiting Last Admin: 03/28/20 17:28 Dose: 1.5 mg Documented by: Sodium Chloride (Saline Flush) 10 ml FLUSH ASDIRECTED PRN PRN Reason: Keep Vein Open Last Admin: 03/27/20 21:42 Dose: 10 ml Documented by: Discontinued Medications Diatrizoate Meglum/Diatrizoate Sod (Gastrografin 37%) 90 ml PO ONETIME ONE Stop: 03/27/20 22:54 Last Admin: 03/27/20 22:54 Dose: 90 ml Documented by: Fentanyl (Sublimaze) Confirm Administered Dose 100 mcg .ROUTE .STK-MED ONE Stop: 03/28/20 11:20 Hydromorphone HCl (Dilaudid) 1 mg IVPUSH ONETIME ONE Stop: 03/27/20 21:12 Last Admin: 03/27/20 21:31 Dose: 1 mg Documented by: Hydromorphone HCl (Dilaudid) 1 mg IVPUSH ONETIME ONE Stop: 03/27/20 23:44 Last Admin: 03/27/20 23:50 Dose: 1 mg Documented by: Hydromorphone HCl (Dilaudid) 0.5 mg IVPUSH Q2H PRN PRN Reason: Pain (severe 7-10) Last Admin: 03/29/20 09:23 Dose: 0.5 mg Documented by: Sodium Chloride (Normal Saline) 1,000 mls @ 1,000 mls/hr IV .BOLUS STA Stop: 03/27/20 22:08 Last Admin: 03/27/20 21:31 Dose: 1,000 mls/hr Documented by: Potassium Chloride 10 meq/ (Premix) 100 mls @ 100 mls/hr IV Q1H MEDINA Stop: 03/28/20 12:59 Last Admin: 03/28/20 16:01 Dose: 100 mls/hr Documented by: Lidocaine HCl (Xylocaine-Mpf 1%) Confirm Administered Dose 4 mls @ as directed .ROUTE .STK-MED ONE Stop: 03/28/20 11:14 Iopamidol (Isovue-300 (61%)) 100 ml IVPUSH ONETIME ONE Stop: 03/27/20 22:54 Last Admin: 03/27/20 22:54 Dose: 100 ml Documented by: Lidocaine HCl (Xylocaine 2% Jelly) Confirm Administered Dose 10 ml .ROUTE .STK- MED ONE Stop: 03/27/20 23:37 Last Admin: 03/28/20 05:15 Dose: Not Given Documented by: Ondansetron HCl (Zofran) 4 mg IVPUSH ONETIME ONE Stop: 03/27/20 21:10 Last Admin: 03/27/20 21:31 Dose: 4 mg Documented by: Pantoprazole Sodium (Protonix Iv) 80 mg IVPUSH BOLUS ONE Stop: 03/27/20 23:31 Last Admin: 03/27/20 23:42 Dose: 80 mg Documented by: Propofol (Diprivan 20 Ml) Confirm Administered Dose 400 mg .ROUTE .STK-MED ONE Stop: 03/28/20 11:14 Propofol (Diprivan 20 Ml) Confirm Administered Dose 200 mg .ROUTE .STK-MED ONE Stop: 03/28/20 11:56 - Exam General: Reports: Alert, Oriented, Cooperative HEENT: Reports: Pupils Equal, Pupils Reactive, EOMI, Mucous Membr. Moist/[place]ck: Reports: Supple Lungs: Reports: Clear to Auscultation, Normal Respiratory Effort Cardiovascular: Reports: Regular Rate, Regular Rhythm GI/Abdominal Exam: Normal Bowel Sounds, Soft, Non-Tender, No Organomegaly, No Distention, No Abnormal Bruit (Male) Exam: Deferred Rectal (Males) Exam: Deferred Back Exam: Reports: Normal Inspection, Full Range of Motion Extremities: Normal Inspection, Normal Range of Motion, Non-Tender, No Pedal Edema, Normal Capillary Refill Skin: Reports: Warm, Dry, Intact Neurological: Reports: No New Focal Deficit Psy/Mental Status: Reports: Alert, Normal Affect, Suicidal Ideation
--- NOTE | 2020-04-01 10:34 | CR ---
Chest: Portable view of the chest was obtained. Comparison: No prior chest imaging is available. Findings: Heart size and mediastinum are normal. Lungs are clear with no acute parenchymal change. Bony structures are grossly intact. No pneumothorax is seen. Impression: 1. Nothing acute is seen on portable chest x-ray. Diagnostic code #1 This report was dictated in MDT
== END 2020-03-30 20:07 | disposition home or self-care (01) | DRG 392 ==
LOC: JD.ED 20:33 → JD.MS 03-28 00:49
PROVIDERS: ADMIT Family Medicine; ATTEND Family Medicine
PROC: 0D9670Z Drainage of Stomach with Drainage Device, Via Natural or Artificial Opening (ICD-10-PCS; principal; 2020-03-28)
PROC: 0DB38ZX Excision of Lower Esophagus, Via Natural or Artificial Opening Endoscopic, Diagnostic (ICD-10-PCS; 2020-03-28)
PROC: 0DB78ZX Excision of Stomach, Pylorus, Via Natural or Artificial Opening Endoscopic, Diagnostic (ICD-10-PCS; 2020-03-28)
DX: R11.2 Nausea with vomiting, unspecified (principal); K31.1 Adult hypertrophic pyloric stenosis; E87.0 Hyperosmolality and hypernatremia; F12.10 Cannabis abuse, uncomplicated; K29.80 Duodenitis without bleeding; K29.00 Acute gastritis without bleeding; K21.9 Gastro-esophageal reflux disease without esophagitis; F90.9 Attention-deficit hyperactivity disorder, unspecified type; E87.6 Hypokalemia; K44.9 Diaphragmatic hernia without obstruction or gangrene; Z20.828 Contact with and (suspected) exposure to other viral communicable diseases; Z87.891 Personal history of nicotine dependence
CPT/HCPCS: 00731; 36415; 71045; 71045-26; 74177; 74177-26; 80053; 80306; 81001; 82248; 83690; 83735; 85025; 85610; 85730; 96361; 96374; 96375; 96376; 99222; 99232; 99238; 99285; 99285-25; A9270-GY; C9113; J1170; J2001; J2405; J2550; J2704; J3010; J3480; J7030; J7050; Q9963; Q9967; U0002